=== PATIENT | female | born 1955 | race Caucasian/White ===

== ENCOUNTER 2024-10-28 10:23 | Observation (INO) | payer MEDICARE, SELFPAY ==
--- OUTSIDE RECORDS SUMMARY | 2024-09-29 12:18 | XMS_ITS | Continuity of Care Document ---
Author Organization [facility] Phone Care Team Providers Care Favor Maker Name Role Phone TESSA PLASENCIA Primary Care BAYRON GIORDANO Admitting BAYRON GIORDANO Primary Attending BAYRON GIORDANO Unavailable ALLERGIES AND ADVERSE REACTIONS ALLERGIES AND ADVERSE REACTIONS Code System Allergy Substance Adverse Reaction Date Reaction (Severity) Comment Status Reported By Updated By [id number] RXNorm MORPHINE Not available active [id number] on September 11, 2024 3:43:58 PM [place] 2670 RXNorm Codeine itching active [id number] on September 11, 2024 3:43:58 PM [place] FAMILY HISTORY RELATION: Father Status: Cause of : Unknown Age at : Unknown SNOMED-CT Diagnosis Age At Onset [id number] Cerebrovascular accident RELATION: Mother Status: Cause of : Unknown Age at : Unknown SNOMED-CT Diagnosis Age At Onset Information not available MEDICATIONS HOME MEDICATIONS Status RXNORM NDC Medication Dose Route Frequency Dates Comments Reported By Updated By Active 5186464 63442 10874 8 Albuterol Sulfate HFA Inhalation Aerosol Solution 108 (90 Base) MCG/ACT 2.0 PUF INHALE D Q4HPRN Last Dose: [id number] on September 11, 2024 3:44:24 PM [place] Active 086540 36774 51501 1 atorvastatin calcium (LIPITOR) 20.0 MG ORAL DAILY Last Dose: [id number] on September 11, 2024 3:44:28 PM [place] Active 980370 26736 77267 0 pantoprazole (PROTONIX) 40.0 MG ORAL DAILY Last Dose: [id number] on September 11, 2024 3:44:38 PM [place] Active 6704362 44605 02826 0 Trelegy Ellipta Inhalation Aerosol Powder Breath Activated 200-62.5-25 MCG/ACT 1.0 PUF INHALE D DAILY Last Dose: PATIENT lakisha on September 11, 2024 3:50:47 PM [facility] Active 6935031 07030 07933 1 DUONEB 0.5-2.5 MG/3 ML 1.0 NEB INHALE D [id number] Last Dose: PATIENT lakisha on September 11, 2024 3:51:27 PM [facility] Active 255847 81662 46410 1 METOPROLOL SUCCINATE ER 25.0 MG ORAL DAILY Last Dose: PATIENT lakisha on September 11, 2024 3:51:56 PM [facility] Active 09609 21478 1 Multivitamin Adult (Minerals) Oral Tablet 1.0 TAB ORAL DAILY Last Dose: PATIENT lakisha on September 11, 2024 3:52:56 PM [facility] Active 7729753 53238 95386 1 Naproxen Sodium Oral Capsule 220 MG 1.0 TAB ORAL BIDPRN Last Dose: PATIENT lakisha on September 11, 2024 3:54:19 PM [facility] Active 72565 27179 1 Vitamin D3 Oral Capsule 1.25 MG (08567 UT) 1.0 TAB ORAL DAILY Last Dose: PATIENT lakisha on September 11, 2024 3:55:27 PM [facility] DISCHARGE MEDICATIONS Status [place] [facility] [place] Medication Dose Route Frequency Dates Comments Physician Updated By No Discharge Medication Info rmation Available INPATIENT MEDICATIONS Status RXNORM [facility] [place] Medication Dose Route Frequency Rat e Quantity Dates Comments Physician Updated By No Inpatient Medication Info rmation Available SOCIAL HISTORY SOCIAL HISTORY SNOMED-CT Social History Element Description Effective Dates Offered Cessation Comment UpdatedBy [id number] Historical Tobacco smoking status Current Every Day Smoker [id number] on June 21, 2024 10:26:14 PM [facility] SOCIAL HISTORY - Gender Sex: Female SOCIAL HISTORY - Status : status i nformation is not available Intention in Next Year: intention information is not available SOCIAL HISTORY - Sexual Behavior Sexual Orientation Gender Identity SNOMED-CT Description SNO MED -CT Description Activity Level No of Partners Partner Type UpdatedBy Information is not available HEALTH CONCERNS Problems Concern Status Health Concern problem infor mation not available. Smoking Status Status Years Used Consumed packs p er day Health Concern smoking histo ry information not available. Family History Concern Status Health Concern family histor y information not available. ENCOUNTERS ENCOUNTER INFORMATION Reason for Visit J41.0 Admission September 10, 2024 11:01:00 AM [place] [address] [address] Discharge September 27, 2024 3:59:00 AM [place] DISCH ARGED TO HOME OR SELF CARE ENCOUNTER DIAGNOSES Notes information is not mil ilable. Code System Diagnosis Onset Date Diagnosis information is not available. ABSTRACT DIAGNOSES Code System Diagnosis Updated By J41.0 ICD10 SIMPLE CHRONIC BRONCHITIS PQ E7261 on September 29, 2024 4:17:42 PM [place] J41.0 ICD10 SIMPLE CHRONIC BRONCHITIS PQ E7261 on September 29, 2024 4:17:42 PM [facility] CARE TEAM Care Favor Maker Role TESSA PLASENCIA Primary Care BAYRON GIORDANO Admitting BAYRON GIORDANO Primary Attending BAYRON GIORDANO Referring CARE TEAM CARE casting technician Role on Team Status Start Date End Date Update d By LUIS ANGEL ZARATE MYSQL DEVELOPER PCP normal September 11, 2024 11:01:55 AM [facility] September 10, 2024 4:00:00 AM [facility] [id number] on September 11, 2024 11:01:55 AM [facility] PASQUALE BENNETT Referring normal September 11, 2024 11:01:55 AM [facility] September 10, 2024 4:00:00 AM [facility] [id number] on September 11, 2024 11:01:55 AM [facility] PASQUALE BENNETT Attending normal September 11, 2024 11:01:55 AM [facility] September 10, 2024 4:00:00 AM [facility] [id number] on September 11, 2024 11:01:55 AM [facility] PASQUALE BENNETT Admitting normal September 11, 2024 11:01:55 AM [facility] September 10, 2024 4:00:00 AM [facility] [id number] on September 11, 2024 11:01:55 AM [facility]
--- OUTSIDE RECORDS SUMMARY | 2024-10-24 12:52 | XMS_ITS | Continuity of Care Document ---
Author Organization [facility] Phone Care Team Providers Care Corporate Strategist Name Role Phone BAYRON GIORDANO Primary Attending BAYRON GIORDANO Admitting BAYRON GIORDANO Unavailable TESSA PLASENCIA Primary Care ALLERGIES AND ADVERSE REACTIONS ALLERGIES AND ADVERSE REACTIONS Code System Allergy Substance Adverse Reaction Date Reaction (Severity) Comment Status Reported By Updated By [id number] RXNorm MORPHINE Not available active [id number] on September 11, 2024 3:43:58 PM [facility] 2670 RXNorm Codeine itching active [id number] on September 11, 2024 3:43:58 PM [facility] FAMILY HISTORY RELATION: Father Status: Cause of : Unknown Age at : Unknown SNOMED-CT Diagnosis Age At Onset [id number] Cerebrovascular accident RELATION: Mother Status: Cause of : Unknown Age at : Unknown SNOMED-CT Diagnosis Age At Onset Information not available MEDICATIONS HOME MEDICATIONS Status RXNORM NDC Medication Dose Route Frequency Dates Comments Reported By Updated By Drug Treatment Unknown DISCHARGE MEDICATIONS Status RXNORM NDC Medication Dose Route Frequency Dates Comments Physician Updated By No Discharge Medication Info rmation Available INPATIENT MEDICATIONS Status RXNORM NDC Medication Dose Route Frequency Rat e Quantity Dates Comments Physician Updated By No Inpatient Medication Info rmation Available SOCIAL HISTORY SOCIAL HISTORY SNOMED-CT Social History Element Description Effective Dates Offered Cessation Comment UpdatedBy [id number] Historical Tobacco smoking status Current Every Day Smoker [id number] on June 21, 2024 10:26:14 PM [facility] SOCIAL HISTORY - Gender Sex: Female [...] INFORMATION Reason for Visit J41.0 Admission September 27, 2024 7:32:[address] [address] Discharge October 24, 2024 3:52:00 PM [facility] DISC HARGED TO HOME OR SELF CARE ENCOUNTER DIAGNOSES Notes information is not mil ilable. Code System Diagnosis Onset Date Diagnosis information is not available. ABSTRACT DIAGNOSES Code System Diagnosis Updated By J41.0 ICD10 SIMPLE CHRONIC BRONCHITIS HI E5319 on September 27, 2024 2:11:16 PM [facility] CARE TEAM Care Corporate Strategist Role BAYRON GIORDANO Primary Attending BAYRON GIORDANO Admitting BAYRON GIORDANO Referring TESSA PLASENCIA Primary Care CARE TEAM CARE legal clerk Role on Team Status Start Date End Date Update d By PASQUALE BENNETT Referring normal September 27, 2024 2:11:16 PM [facility] October 24, 2024 3:52:00 PM [facility] [id number] on September 27, 2024 2:11:16 PM [facility] PASQUALE BENNETT Attending normal September 27, 2024 2:11:16 PM [facility] October 24, 2024 3:52:00 PM [facility] [id number] on September 27, 2024 2:11:16 PM [facility] PASQUALE BENNETT Admitting normal September 27, 2024 2:11:16 PM [facility] October 24, 2024 3:52:00 PM [facility] [id number] on September 27, 2024 2:11:16 PM [facility] LUIS ANGEL ZARATE APRN PCP normal September 27 7:32:40 AM [facility] October 24, 2024 3:52:00 PM [facility] [id number] on September 27, 2024 2:11:16 PM [facility]
[2024-10-28] VITALS (14 sets, daily range): BP systolic 124–150; BP diastolic 44–85; PULSE 87–119; RESP 16–24; TEMP 36.5–36.8; O2SAT 85–98; BMI 31.2; BMI 31.6
--- NOTE | 2024-10-28 10:32 | ECG_ITS ---
APPROVED REPORT Exam: Resting ECG HR:93 bpm ECG Measurements Heart Rate 93 AXES NH 149 P -16 QRSd 85 QRS -28 QT 342 T -13 QTc 393 Conclusion SINUS RHYTHM BORDERLINE LEFT AXIS DEVIATION [QRS AXIS < -20] VOLTAGE CRITERIA FOR LVH [MEETS CRITERIA IN ONE OF: R(aVL), S(V1), R(V5), R(V5/V6)+S(V1)] No STEMI Electronically signed by : CELIA BATEMAN, 11/03/2024 03:57:41
--- NOTE | 2024-10-28 11:01 | ED_ITS ---
Discharge Plan Disposition Patient Disposition: Admitted Referrals Follow up/Referrals: Provider,Referral, [Primary Care Provider, Medical] - See instructions Clinical Impressions Clinical Impression: Acute exacerbation of chronic obstructive airways disease Print Language Print Language: Yoruba Discharge ED Provider: Leonarda Russell General Adult HPI General Chief complaint: Shortness of Breath/Dyspnea Stated complaint: COPD exaserbation SOA Time Seen by Provider: 10/28/24 11:00 Mode of Arrival: Ambulatory Source of Information: Patient Description of Symptoms (Recalled from ER Triage Doc. by RN): Pt states she is having SOA for 3-4 days with a cough. Pt has Hx of COPD and states she has had yellow thick sputumn. Pt states I have coughed so much it hurts to cough. Pt also reports not being able to hold her bladder which began this AM. Pt denies and pain or burning. History of Present Illness HPI narrative: Patient is a 69-year-old past medical history significant for COPD presents the emergency department with 3 days of cough congestion and shortness of breath. Denies chest pain. Cough is productive with yellow thick sputum. Is 1/2 pack/day smoker. Related Data Allergies Allergy/AdvReac Type Severity Reaction Status Date / Time No Known Allergies Allergy Verified 11/13/20 11:34 [facility] Disclaimer: The information contained in this section may have been updated after the patient was seen, as this information can be updated by other users. Social History Smoking Status: Current every day smoker alcohol intake: former current occupational status: unemployed Travel in the last 8 weeks?: Inside the [place] ROS Obtained: Yes All systems reviewed & no additional complaints except as documented Physical Exam General General appearance: alert ENT ENT exam: Present other (Nasal congestion) Respiratory Respiratory exam: Present wheezes and accessory muscle use Cardiovascular Cardiovascular exam: Present regular rate and normal rhythm Abdominal Exam Abdominal exam: Present soft; Absent tenderness Neurological Exam Neurological exam: Present alert and oriented X3 Medical Decision Making Medical Records Screening: Per USPSTF and CDC recommendations, given the prevalence of disease in our region, it is our hospital?s policy to screen for HIV and viral Hepatitis for all patients aged 18 and over and those with ongoing risk factors. Jayme Inquiry Pt receiving controlled substance: No Vital Signs: 10/28/24 10:30 10/28/24 10:33 10/28/24 10:38 Temperature 97.8 F Temperature Source Oral Pulse Rate 91 H Pulse Rate [Left] 91 H Respiratory Rate 16 Blood Pressure 150/85 H Blood Pressure [Right Arm] 150/85 H Blood Pressure Mean [Right Arm] 106 Blood Pressure Source [Right Arm] Automatic Cuff 02 Sat by Pulse Oximetry 85 L 90 L 97 Oxygen Delivery Method Room Air Nasal Cannula Oxygen Flow Rate (LPM) 2 10/28/24 11:00 10/28/24 11:30 10/28/24 12:00 Temperature Temperature Source Pulse Rate 88 87 102 H Pulse Rate [Left] Respiratory Rate 21 24 18 Blood Pressure 141/74 H 125/58 L 126/61 Blood Pressure [Right Arm] Blood Pressure Mean [Right Arm] Blood Pressure Source [Right Arm] 02 Sat by Pulse Oximetry 97 98 95 Oxygen Delivery Method Nasal Cannula Oxygen Flow Rate (LPM) 2 Lab Data Lab Results 10/28/24 10:45: WBC 7.3, RBC 4.23, Hgb 13.4, Hct 41.1, MCV 97.2, MCH 31.7 H, MCHC 32.6, RDW 11.9, Plt Count 207, MPV 9.5, Neut % (Auto) 62.1, Lymph % (Auto) 24.9, [place] % (Auto) 11.9 H, Eos % (Auto) 0.1, Baso % (Auto) 0.3, Neut # (Auto) 4.5, Lymph # (Auto) 1.8, [place] # (Auto) 0.9, Eos # (Auto) 0.0, Baso # (Auto) 0.0, Sodium 139, Potassium 3.9, Chloride 105, Carbon Dioxide 32 H, Anion Gap 5.9, BUN 18 H, Creatinine 0.90, Estimated Creat Clear 59, Estimated GFR 62, Est GFR ( Amer) 75, Glucose 92, Calcium 9.0, Magnesium 2.1, Total Bilirubin 0.6, AST 24, ALT 21, Alkaline Phosphatase 87, Troponin I < 0.01, Total Protein 6.8, Albumin 3.9, Globulin 2.9, Albumin/Globulin Ratio 1.3, Procalcitonin 0.064 10/28/24 11:15: SARS-CoV-2 (PCR) Not detected, Influenza A Untype (PCR) Not detected, Influenza Type B (PCR) Not detected 10/28/24 10:45 10/28/24 10:45 Orders (Tests/Meds): ED MEDICATIONS Generic Name Dose Route Start Last Admin Trade Name Freq PRN Reason Stop Dose Admin Ceftriaxone Sodium 1 gm/ 50 mls @ 100 mls/hr 10/28/24 12:00 Sodium Chloride IV 11/07/24 11:59 Q24H CARLOS Azithromycin 500 mg/ Sodium 250 mls @ 250 mls/hr 10/28/24 12:00 Chloride IV 11/07/24 11:59 Q24H CARLOS Discontinued Medications Generic Name Dose Route Start Last Admin Trade Name Freq PRN Reason Stop Dose Admin Albuterol/Ipratropium 9 ml 10/28/24 11:28 10/28/24 11:30 Ipratropium/Albuterol 3 Ml Neb IH 10/28/24 11:29 9 ml ONCE ONE Administration Methylprednisolone Sodium Succinate 125 mg 10/28/24 11:09 10/28/24 11:30 Methylprednisolone Sod Succ 125mg Vial IV 10/28/24 11:10 125 mg ONCE ONE Administration ORDERS Category Date Time Status XR chest 2V Stat Exams 10/28/24 11:07 Completed Complete Blood Count Auto Diff Stat Lab 10/28/24 10:45 Completed Comprehensive Metabolic Panel Stat Lab 10/28/24 10:45 Completed Full Resp Panel w/COVID ([facility]) Routine Lab 10/28/24 11:15 Received Magnesium Stat Lab 10/28/24 10:45 Completed Procalcitonin Stat Lab 10/28/24 10:45 Completed Rapid PCR Covid and Flu A/B Stat Lab 10/28/24 11:15 Completed Troponin I Q3H Lab 10/28/24 14:15 Ordered Troponin I Q3H Lab 10/28/24 17:15 Ordered Troponin I Stat Lab 10/28/24 10:45 Completed ECG Request Stat Y 10/28/24 11:10 Ordered Medical Decision Narrative: In summary, this 69-year-old female presents to the emergency department today with shortness of breath. On initial evaluation patient is hypertensive hypoxic requiring 2 L nasal cannula normal heart rate. Differential diagnosis includes but is not limited to COPD exacerbation pneumonia ACS viral syndrome. , Based on these concerns, I ordered CBC CMP procalcitonin nasopharyngeal respiratory swab chest x-ray, EKG troponins ECG personally interpreted demonstrates normal sinus rhythm left axis deviation no ST elevation ST depression or T wave inversions concerning for ischemia Patient received 3 DuoNebs and methylprednisolone for treatment. Labs personally reviewed demonstrate bicarb of 32 negative for COVID flu. XR personally interpreted demonstrates no focal consolidation I had an interactive discussion with hospitalist and with recommendations to admit for further evaluation of COPD exacerbation. On reassessment patient continues to require oxygen 2 L nasal cannula Critical Care Critical Care Time Critical Care Time: No
--- NOTE | 2024-10-28 11:07 | XR_ITS ---
PROCEDURE INFORMATION: Exam: XR Chest Exam date and time: 10/28/2024 11:08 AM Age: 69 years old Clinical indication: Shortness of breath; Additional info: SOA TECHNIQUE: Imaging protocol: Radiologic exam of the chest. Views: 2 views. COMPARISON: No relevant prior studies available. FINDINGS: Lungs: Unremarkable. No consolidation. Pleural spaces: Unremarkable. No pleural effusion. No pneumothorax. Heart/Mediastinum: Unremarkable. No cardiomegaly. Vasculature: Atheromatous calcifications affect the aorta. Bones/joints: Moderate kyphosis involving the thoracic spine. Moderate wedge compression deformities involving the midthoracic vertebrae are age indeterminate. IMPRESSION: No acute findings.
[2024-10-28 11:17] LABS: Basophils % 0.3 % (0.1-2.0); Eosinophils % 0.1 % (0.1-12.0); Hematocrit 41.1 % (37.0-47.0); Hemoglobin 13.4 g/dL (12.2-16.2); Immature Granulocytes # 0.05 10^3uL; Immature Granulocytes % 0.7 %; Lymphocytes # 1.8 K/mm3 (0.7-4.5); Lymphocytes % 24.9 % (10-50); Mean Corpuscular HGB Conc 32.6 g/dL (31.8-35.4); Mean Corpuscular Hemoglobin 31.7 pg (27.0-31.2); Mean Corpuscular Volume 97.2 fl (81-99); Mean Platelet Volume 9.5 fl (7.4-10.4); Monocytes # 0.9 K/mm3 (0.1-1.0); Monocytes % 11.9 % (1.7-9.3); Neutrophils # 4.5 K/mm3 (1.8-7.8); Neutrophils % 62.1 % (37.0-80.0); Nucleated Red Blood Cells # 0 10^3/uL; Nucleated Red Blood Cells % 0 %; Platelet Count 207 K/mm3 (142-424); Red Blood Count 4.23 M/mm3 (4.20-5.40); Red Cell Distribution Width 11.9 % (11.5-17.5); Red Cell Distribution Width-SD 42.3 fL; White Blood Count 7.3 K/mm3 (4.8-10.8)
[2024-10-28 11:18] LABS: Coronavirus 19, PCR Not Detected (NotDetected); Influenza A, PCR Not Detected (NotDetected); Influenza B, PCR Not Detected (NotDetected)
--- OUTSIDE RECORDS SUMMARY | 2024-10-28 11:18 | XMS_ITS | Data Portability ---
Author Organization [facility] Address [address] [place] [address] Care Team Providers Care [place] Manager Name Role Phone JULIANN MAHANAIDEN Primary Care Provider [phone] Assessment No assessment recorded. Plan of Treatment Reminders Order Date Submit Date Provider Last Modified By Organization Details Last Modified Time Details Appointments None recorded. Lab influenza virus A + B + SARS-CoV-2 (COVID19) Ag panel, rapid IA, upper respirator y specimen 2023 024 [facility], [address] , [place], [address], 4 11:53:55 urinalysis , dipstick 2022 023 [facility], [address] [place], [address], 3 16:25:06 culture, urine 2022 023 [facility] (Laboratory), [address] [place] [address] [place], [address], 3 06:31:40 Referral urogynecol ogist referral 2022 023 [email or web address] Myrtle Bain MD, [address], [address], [address], 3 13:59:27 Procedures None recorded. Surgeries None recorded. Imaging US, duplex, venous, lower extremity, unilateral 2023 024 [facility] (Scheduling), [address] [place], [address], 4 16:12:59 XR, foot, 3 or more view 2023 024 [facility] (Scheduling), [address] [place], [address], 4 16:17:25 Medication Orders Medrol (See) 4 mg tablets in a dose pack 2023 025 [facility], [address] [place] [address], [address], 5 07:29:11 azithromyc in 250 mg tablet 2023 025 [facility], [address] [place] [address], [address], 5 07:28:10 metoprolol succinate ER 25 mg tablet,ext ended release 24 hr 2023 024 [facility], [address] [place] [address], [address], 4 15:33:04 atorvastat in 20 mg tablet 2023 024 [facility], [address] [place] [address], [address], 4 15:33:06 Medrol (See) 4 mg tablets in a dose pack 2022 023 [email or web address] [facility], [address] [place] [address], [address], 5 07:29:04 doxycyclin e hyclate 100 mg capsule 2022 023 [email or web address] [facility], [address] [place] [address], [address], 14:14:23 Patient TargetsNo targets recorded. Patient InstructionsNo instructions recorded. Reason for Referral Urogynecologist Referral for Overactive urinary bladder due to prolapse of female genital organ Referring Physician: Sai Mahan, Family Medicine, Encounter Date: 01/21/2023 Results Created Date Observation Date Name Description Value Unit Range Abnormal Flag Note LastModifiedBy Organization Detail LastModifiedTime 01/22/2001/21/2023 CULTU RE URINE results [facility] 01-22 630 No Growt h at Day 1 [facility] 01-23 605 No Signi fican t Growt h at Day 2 Not Available [facility] (Lab Registration) [address] [place], [address], 01/23/2023 06:06:57 01/22/20 23 01/21/2023 CULTU RE URINE note Unles s other milian noted testi ng perfo rmed at: [facility] [employer] [place] [address] [phone] Dale keen MD CLIA: [id number] Not Available [facility] (Lab Registration) [address] [place], [address], 01/23/2023 06:06:57 01/22/20 23 01/21/2023 urina lysis , dipst ick Leukocytes (reference range) negati ve Not Available [address] [place], [address], 01/21/2023 16:11:34 01/22/20 23 01/21/2023 urina lysis , dipst ick Nitrite (reference range:) negati ve Not Available [address] [place], [address], 01/21/2023 16:11:34 01/22/20 23 01/21/2023 urina lysis , dipst ick Urobilinogen (reference range) 0.2 Not Available [address] [place], [address], 01/21/2023 16:11:34 01/22/20 23 01/21/2023 urina lysis , dipst ick Protein (reference range) negati ve Not Available [address] [place], [address], 01/21/2023 16:11:34 01/22/20 23 01/21/2023 urina lysis , dipst ick pH (reference range 5-8.5) 5.5 Not Available [address] [place], [address], 01/21/2023 16:11:34 01/22/20 23 01/21/2023 urina lysis , dipst ick Blood (reference range:) non-He molyze d: Trace Not Available [address] [place], [address], 01/21/2023 16:11:34 01/22/20 23 01/21/2023 urina lysis , dipst ick Specific [place] (reference range) 1.030 Not Available [address] [place], [address], 01/21/2023 16:11:34 01/22/20 23 01/21/2023 urina lysis , dipst ick Ketone (reference range) negati ve Not Available [address] [place], [address], 01/21/2023 16:11:34 01/22/20 23 01/21/2023 urina lysis , dipst ick Bilirubin (reference range) negati ve Not Available [address] [place], [address], 01/21/2023 16:11:34 01/22/20 23 01/21/2023 urina lysis , dipst ick Glucose (reference range) negati ve Not Available [address] [place], [address], 01/21/2023 16:11:34 01/22/20 23 01/21/2023 urina lysis , dipst ick Color (reference range: yellow-brown ) Yellow Not Available [address] [place], [address], 01/21/2023 16:11:34 02/07/20 24 02/07/2024 influ marco virus A + B + SARS- CoV-2 (COVI D19) Ag panel , rapid IA, upper respi rator y speci men FLU A negati ve Not Available [address] [place], [address], 02/07/2024 11:26:51 02/07/20 24 02/07/2024 influ marco virus A + B + SARS- CoV-2 (COVI D19) Ag panel , rapid IA, upper respi rator y speci men FLU B negati ve Not Available [address] [place], [address], 02/07/2024 11:26:51 02/07/20 24 02/07/2024 influ marco virus A + B + SARS- CoV-2 (COVI D19) Ag panel , rapid IA, upper respi rator y speci men SARS COV + SARS OV 2 negati ve Not Available [address] [place], [address], 02/07/2024 11:26:51 11/30/19 24 11/30/2023 US, yuusf x, mara s, jaylen sawyer, [facility] [address] [place] [place] [address] Phone: Fax: Name: ASAF BUSTOS Exam Date: 11/30/19 : 1954 Age 68 years Gender : F Access ion: [id number] Physic damion: LUCHO LUCIANO TAFNOEMÍ Y Facili ty: [facility] Facili ty HSV: Outpat ient Exam: VENOUS DUPLEX LOWER LEFT DUPLEX VENOUS SONOGR APHY OF THE LEFT LOWER EXTREM ITY HISTOR Y: Left leg pain and swelli ng FINDIN GS: Multip le transv erse and longit udinal scans were perfor med of the femoro poplit eal deep venous system , with augmen tation and compre ssion maneuv ers. Normal phasic flow was noted in the visual ized deep venous system . No intral uminal increa sed echoge nicity is noted to sugges t thromb us. There is normal compre ssion and augmen tation of the venous struct ures. No abnorm al venous collat erals are seen. IMPRES ANNIE: No eviden ce of deep venous thromb osis of the left lower extrem ity. Dictat ed By: ALMA ROSA MARTINES Transc ribed By: ALMA ROSA MARTINES Transc ribed On: 11/30/19 4:09 PM Electr onical ly signed by: ALMA ROSA MARTINES 11/30/19 [facility] Legall y authen ticate d by BOBBI MARROQUIN MD 11-29 16:09: 46 CC'ed Logic: Orderi ng Provid er: AMBURG EY TAFFAN Y CC Provid er: [facility] EY TAFFAN Y Attend ing Provid er: [facility] EY TAFFAN Y Referr ing Provid er: [facility] EY TAFFAN Y Admitt ing Provid er: AM[facility] EY TAFFAN Y [email or web address] [facility] (Radiology) [address] [place], [address], 11/30/2023 16:32:06 11/30/19 24 11/30/2023 XR, foot, 3 [facility] [address] [place] [address] Phone: Fax: Name: ASAF BUSTOS Brooks Exam Date: 11/30/19 : 1954 Age 68 years Gender : F Access ion: [id number] Physic damion: DUNIA KILPATRICK Y [facility]ili [facility] Facili ty HSV: Outpat ient Exam: FOOT LT 3V Left foot THREE VIEW HISTOR Y: Pain. FINDIN GS: Three views show no eviden ce of an acute, displa azeb fractu re or disloc ation of the visual ized bony mauricio ecture . The joint spaces appear normal . IMPRES ANNIE: Unrema rkable exam. Dictat ed By: ALMA ROSA MARTINES Transc ribed By: ALMA ROSA MARTINES Transc ribed On: 11/30/19 4:12 PM Electr onical ly signed by: ALMA ROSA MARTINES 11/30/19 Thank you for referr ing AKASH ASAF Noel to [facility]. Legall y authen ticate d by BOBBI MARROQUIN MD 11-29 16:12: 43 CC'ed Logic: Orderi ng Provid er: AMBURG EY TAFFAN Y CC Provid er: [facility] EY TAFFAN Y Attend ing Provid er: [facility] EY TAFFAN Y Referr ing Provid er: AM[facility] EY TAFFAN Y Admitt ing Provid er: AMBURG EY TAFNOEMÍ Y [id number] [facility] (Radiology) [address] [place] [address] , [place], [address], 11/30/2023 16:32:06 Result Notes None recorded. Problems Name Problem SNOMED Code Status Onset Date Resolution Date Notes Provider Name and Address Organization Details Recorded Time Acute exacerbation of chronic obstructive pulmonary disease 579240250 Active Hugo Hutchinso n null, [place] - [facility] - [place] [facility] [place] 5 07:26:16 Pneumonia 810636543 Active Hugo Hutchinso n null, [place] [facility] [place] 5 07:26:16 Osteoporosis 09199058 Active 2022 Harleen Dougherty null, [place] - [facility] [place] 3 09:48:20 Chronic obstructive pulmonary disease 20589692 Active 2022 Maya Serai null, [place] [facility] [place] 3 14:14:51 Gastroesophage al reflux disease 626454988 Active 2022 Maya Zamorai null, [place] [facility] [place] 3 14:14:55 Essential hypertension 45821088 Active 2022 Maya Oscardini null, [place] [facility] & [place] 3 14:15:07 Disorder of vitamin B12 765549875 Active 2022 Maya Oscardini null, [place] [facility] & [place] 3 14:15:24 Problem Notes None recorded. Procedures Surgical History Date Name Laterality Status Provider Name and Address Organization Details Recorded Time 07/25/19 25 Medicare Annual Wellness Visit Health Risk Assessment cancelled Radha Soriano [place] [facility] [place] 07/25/2024 07:42:43 08/17/19 23 Nebulizer tx completed SAI MAHAN NP [address] [place] [address], [address] [place] - [facility] - [place] & [place] 08/18/2022 09:59:09 07/21/19 23 Medicare Annual Wellness Visit Health Risk Assessment completed Harleen Dougherty [place] [facility] [place] & [place] 07/21/2022 09:57:58 05/30/19 15 cardiac catheterization completed Harleen CURRY - [facility] & [place] 07/21/2022 09:52:01 Cholecystectomy completed Harleen CURRY - [facility] - [facility] & [place] 07/21/2022 09:52:13 hysterectomy completed Harleen Dougherty [place] [facility] & [place] 07/21/2022 09:52:20 Imaging Results None recorded. Procedure Notes None recorded. Medical Equipment None Reported. Allergies Allergen ID Allergen Name Allergen Category Reaction Reaction Severity Criticality Documentation Date Start Date Code Code System Note Provider Name and Address Organization Details Recorded Time [id number] codeine medicatio n itching Not available Not available 06/21/2024 2670 RxNorm Michelle Bubba null, [place] - [facility] [place] & [place] 5 13:44:58 23769 morphine medicatio n Not available Not available Not available 07/21/2022 7052 RxNorm Other react ions and sever ities : 'Adve rse react ion to subst ance' . Hugo noel null, [place] - [facility] - [place] & [place] 5 07:26:05 Medications Name Sig Start Date Stop Date Status Note LastModified by Organization Details LastModified Time cyclobenzap rine 10 mg tablet TAKE 1 TABLET BY MOUTH THREE TIMES DAILY 07/21 completed Not Available Not Available Not Available atorvastati n 40 mg tablet 20 mg by oral route. active Not Available Not Available No t Available acetaminoph en 325 mg tablet 650 mg by oral route. 06/23 completed Not Available Not Available Not Available doxycycline hyclate 100 mg capsule TAKE 1 CAPSULE BY MOUTH TWICE DAILY FOR 7 DAYS 05/10 completed Not Available Not Available Not Available atorvastati n 20 mg tablet Take 1 tablet by mouth once daily 2024 active Not Available Not Available Not Avai lable nicotine 14 mg/24 hr daily transdermal patch 14 mg by transderm . route. 06/23 completed Not Available Not Available Not Available ipratropium 0.5 mg-albutero l 3 mg (2.5 mg base)/3 mL nebulizatio n soln 1 neb by inhalatio n route. 06/21 completed Not Available Not Available Not Available atorvastati n 10 mg tablet TAKE 1 TABLET BY MOUTH ONCE DAILY 07/21 completed Not Available Not Available Not Available azithromyci n 250 mg tablet TAKE 2 TABLETS BY MOUTH ON DAY 1, AND THEN TAKE 1 TABLET BY MOUTH ONCE A DAY ON DAY 2 THROUGH DAY 5 07/25 completed Not Available Not Available Not Available benzonatate 200 mg capsule Take 1 capsule by oral route. 07/25 completed Not Available Not Available Not Available metoprolol succinate ER 50 mg tablet,exte nded release 24 hr 1 tablet by oral route. 2024 active Not Available Not Available Not Avai lable lorazepam 2 mg/mL injection solution 2 mg by injection route. 06/22 completed Not Available Not Available Not Available prednisone 20 mg tablet TAKE 3 TABLETS BY MOUTH ONCE DAILY FOR 5 DAYS 05/10 completed Not Available Not Available Not Available alendronate 70 mg tablet TAKE 1 TABLET BY MOUTH ONCE A WEEK 30 MINUTES BEFORE THE FIRST FOOD BEVERAGE OR MEDICINE OF THE DAY. TAKE WITH PLAIN WATER 07/21 completed Not Available Not Available Not Available clonazepam 0.5 mg tablet TAKE ONE TABLET BY MOUTH 30 MINUTES BEFORE MRI 07/21 completed Not Available Not Available Not Available melatonin 3 mg tablet 3 mg by oral route. 06/23 completed Not Available Not Available Not Available levofloxaci n 250 mg tablet Take 1 tablet by oral route. 07/25 completed Not Available Not Available Not Available aspirin 81 mg tablet,theo yed release 81 mg by oral route. active Not Available Not Available No t Available hydralazine 20 mg/mL injection solution 20 mg by injection route. 06/23 completed Not Available Not Available Not Available ketorolac 10 mg tablet TAKE 1 TABLET BY MOUTH EVERY 4 TO 6 HOURS NEEDED FOR PAIN. DO NOT EXCEED 4 TABLETS PER 24 HOURS 07/21 completed Not Available Not Available Not Available Aleve 220 mg tablet Take 1 tablet every day by oral route as needed. active Not Available Not Available No t Available Nitro-Bid 2 % transdermal ointment 1 in by transderm . route. 06/21 completed Not Available Not Available Not Available ceftriaxone 1 gram solution for injection 1 g by injection route. 06/22 completed Not Available Not Available Not Available famotidine 20 mg tablet 20 mg by oral route. 06/23 completed Not Available Not Available Not Available Pulmicort 0.5 mg/2 mL suspension for nebulizatio n 0.5 mg by inhalatio n route. 06/23 completed Not Available Not Available Not Available benzonatate 100 mg capsule 100 mg by oral route. 06/21 completed Not Available Not Available Not Available pantoprazol e 40 mg tablet,theo yed release Take 1 tablet by mouth once daily active Not Available Not Available No t Available prednisone 50 mg tablet 1 tablet by oral route. 2024 active Not Available Not Available Not Avai lable nicotine 21 mg/24 hr daily transdermal patch 1 pat by transderm . route. 2024 active Not Available Not Available Not Avai lable methylpredn isolone sodium succinate 40 mg solution for injection 80 mg by injection route. 06/23 completed Not Available Not Available Not Available codeine 10 mg-guaifene sin 100 mg/5 mL oral liquid 5 mL by oral route. 06/22 completed Not Available Not Available Not Available metoprolol succinate ER 25 mg tablet,exte nded release 24 hr 25 mg by oral route. active Not Available Not Available No t Available methylpredn isolone sodium succinate 125 mg solution for injection 125 mg by injection route. 06/21 completed Not Available Not Available Not Available levofloxaci n 750 mg tablet 750 mg by oral route. 06/23 completed Not Available Not Available Not Available methylpredn isolone 4 mg tablets in a dose pack TAKE DIRECTED 07/25 completed Not Available Not Available Not Available albuterol sulfate HFA 90 mcg/actuati on aerosol inhaler 2 pufs by inhalatio n route. 2024 active Not Available Not Available Not Avai lable propranolol 20 mg tablet TAKE 1 TABLET BY MOUTH ONCE DAILY AT BEDTIME 07/21 completed Not Available Not Available Not Available ondansetron 4 mg disintegrat ing tablet 4 mg by oral route. 06/23 completed Not Available Not Available Not Available Solu-Cortef 100 mg solution for injection 100 mg by injection route. 06/21 completed Not Available Not Available Not Available metoprolol tartrate 5 mg/5 mL intravenous solution 5 mg by intraven. route. 06/23 completed Not Available Not Available Not Available enoxaparin 80 mg/0.8 mL subcutaneou s syringe 80 mg by sub-q route. 06/23 completed Not Available Not Available Not Available Mucinex 600 mg tablet, extended release Take 1 tablet every 12 hours by oral route for 90 days. 11/26 completed Not Available Not Available Not Available metoprolol tartrate 25 mg tablet 25 mg by oral route. 06/22 completed Not Available Not Available Not Available nitrofurant oin monohydrate /macrocryst als 100 mg capsule TAKE 1 CAPSULE BY MOUTH TWICE DAILY FOR 10 DAYS 07/21 completed Not Available Not Available Not Available multivitami n one tablet everyday active Not Available Not Available No t Available Vitamin B12 one tabley everyday active Not Available Not Available No t Available ondansetron HCl (PF) 4 mg/2 mL injection solution 4 mg by injection route. 06/23 completed Not Available Not Available Not Available levocetiriz ine 5 mg tablet TAKE 1 TABLET BY MOUTH ONCE DAILY active Not Available Not Available No t Available famotidine (PF) 20 mg/2 mL intravenous solution 20 mg by intraven. route. 06/21 completed Not Available Not Available Not Available labetalol 20 mg/4 mL (5 mg/mL) intravenous syringe 10 mg by intraven. route. 06/22 completed Not Available Not Available Not Available Myrbetriq 25 mg tablet,exte nded release TAKE 1 TABLET BY MOUTH ONCE DAILY 07/21 completed Not Available Not Available Not Available Trelegy Ellipta 100 mcg-62.5 mcg-25 mcg powder for inhalation 1 puf by inhalatio n route. active Not Available Not Available No t Available Trelegy Ellipta 200 mcg-62.5 mcg-25 mcg powder for inhalation INHALE 1 PUFF BY MOUTH ONCE DAILY active Not Available Not Available No t Available Vitals Date Recorded Body height Body mass index (BMI) Body weight Body temperature Oxygen saturation Oxygen saturation in Arterial blood by Pulse oximetry Heart rate Systolic blood pressure Diastolic blood pressure Provider Name and Address Organization Details Last Updated DateTime 4 152.4 cm 30.5 kg/m2 77863.4 1 g 97.4 [degF] 94 % 94 % 106 /min 136 mm[Hg] 63 mm[Hg] Hugo Hutchinso n [place] - [facility] - [place] & [place] 4 15:16:09 Date Recorded Oxygen saturation Oxygen saturation in Arterial blood by Pulse oximetry Provider Name and Address Organization Details Last Updated DateTime 01/21/2023 98 % 98 % SAI MAHAN NP [address] [place], [address], [place] - [facility] & [place] 01/27/2023 11:05:59 Date Recorded Body height Body mass index (BMI) Body weight Body temperature Heart rate Respiratory rate Systolic blood pressure Diastolic blood pressure Provider Name and Address Organization Details Last Updated DateTime 3 152.4 cm 29.7 kg/m2 40008.0 4 g 98.1 [degF] 96 /min 18 /min 116 mm[Hg] 68 mm[Hg] Gomez Mg [place] - [facility] & [place] 3 15:46:37 Date Recorded Body height Body mass index (BMI) Body weight Body temperature Oxygen saturation Oxygen saturation in Arterial blood by Pulse oximetry Heart rate Respiratory rate Systolic blood pressure Diastolic blood pressure Provider Name and Address Organization Details Last Updated DateTime 4 152.4 cm 30.5 kg/m2 61107.4 1 g 98.1 [degF] 95 % 95 % 102 /min 18 /min 147 mm[Hg] 70 mm[Hg] Gomez CURRY - [facility] & [place] 4 11:27:02 Date Recorded Body height Body mass index (BMI) Body weight Body temperature Oxygen saturation Oxygen saturation in Arterial blood by Pulse oximetry Heart rate Respiratory rate Systolic blood pressure Diastolic blood pressure Provider Name and Address Organization Details Last Updated DateTime 3 152.4 cm 29.7 kg/m2 69928.0 4 g 98 [degF] 92 % 92 % 109 /min 16 /min 136 mm[Hg] 75 mm[Hg] Veronica Gordillo [place] - [facility] & [place] 3 15:54:52 Date Recorded Body height Body mass index (BMI) Body weight Body temperature Oxygen saturation Oxygen saturation in Arterial blood by Pulse oximetry Heart rate Respiratory rate Systolic blood pressure Diastolic blood pressure Provider Name and Address Organization Details Last Updated DateTime 3 152.4 cm 30.2 kg/m2 40210.1 g 97.4 [degF] 97 % 97 % 117 /min 22 /min 141 mm[Hg] 85 mm[Hg] Maya Singer [facility] & [place] 14:13:58 Social History Question Answer Notes LastModified by Organizat ion Details LastModified Time Tobacco Smoking Status Current Every Day Smoker Harleen Dougherty kisha, [facility] & [place] 07/21/2022 09:51:38 What Is Your Level Of Caffeine Consumption? Heavy Information not available 07/21/2022 What Was The Date Of Your Most Recent Tobacco Screening? 11/30/2023 [email or web address] Information not available 11/30/2023 At What Age Did You Start Smoking Tobacco? 11 Information not available 07/21/2022 How Much Tobacco Do You Smoke? 1 PPD Information not available 07/21/2022 Has Tobacco Cessation Counseling Been Provided? Yes [email or web address] Information not available 11/30/2023 On What Date Was Tobacco Cessation Counseling Provided? 11/30/2023 [email or web address] Information not available 11/30/2023 How Many Years Have You Smoked Tobacco? 56 Information not available 07/21/2022 Sex: Unknown Functional Status Question Answer Note LastModified by Organizat ion Details LastModified Time Do you use any illicit or recreational drugs? No Information not available 07/21/2022 Do you or have you ever used any other forms of tobacco or nicotine? No Information not available 07/21/2022 What is your level of alcohol consumption? None Information not available 07/21/2022 Mental Status None recorded. Family History Relationship Description Onset Age of this Age Resolved Age Notes LastModified by Organization Details LastModified Time Mother Pulmonary embolism Deceas ed [email or web address] Not available 07/21/2022 09:50:23 Father Cerebrovascu lar accident Deceas ed [email or web address] Not available 07/21/2022 09:50:45 Brother Malignant neoplasm of lung Deceas ed [email or web address] Not available 07/21/2022 09:51:02 Medical History Condition Response COPD Y Reflux/GERD Y Osteoporosis Y Gynecological HistoryNo gynecological history recorded. Obstetrics History GPAL:G 0 P 0 0 0 0 Immunizations Vaccine Type Date Status Note Provider Nam e and Address Organization Details Recorded Time Pneumococcal conjugate PCV 13 3 completed SAI MAHAN NP [address] [place], [address], [place] [facility] [place] 07/30/2022 16:39:21 COVID-19, mRNA, LNP-S, PF, 100 mcg/0.5mL dose or 50 mcg/0.25mL dose 1 completed Harleen beard, [place] - [facility] [place] 07/21/2022 09:46:36 COVID-19, mRNA, LNP-S, PF, 100 mcg/0.5mL dose or 50 mcg/0.25mL dose 1 completed Harleen beard, [place] [facility] [place] 07/21/2022 09:46:36 pneumococcal polysaccharide PPV23 1 completed Harleen beard, [place] [facility] 07/21/2022 09:46:36 Influenza, high-dose, quadrivalent, PF 2 completed SAI MAHAN NP [address] [place] [address], [address], [place] - [facility] [place] 04/05/2022 17:39:03 Past Encounters Encounter ID Performer Location Encounter Start Date Encounter Closed Date Diagnosis/Indication Diagnosis SNOMED-CT Code Diagnosis ICD10 Code Diagnosis Note [id number] JOHN [address] [address] 04/02/2022 11:34:25 04/02/2022 12:00:04 Administration of influenza vaccine [id number] Z23 [id number] JOHN [address] [address] 07/21/2022 09:28:38 08/02/2022 08:44:05 Adult health examination 811693150 Z00.00 Patient presented to office today for their Medicare Annual Wellness Visit. Education was provided on healthy nutrition, including a diet rich in fruits and vegetables , minimizing simple carbohydra deysi, salt, and saturated fats. Encouraged regular cardiovasc ular exercise such as walking at least 30 minutes daily, 5 times per week. Emphasized preventive health measures and educated pt on fall prevention and community- based lifestyle interventi ons to help reduce health risks and promote healthy living. Screening for malignant neoplasm of respiratory tract 300009082 Z12.2 Screening mammography of bilateral breasts [id number] 41034 Z12.31 Screening for osteoporosis 501366412 Z13.820 previously on alendronat e Screening for malignant neoplasm of colon 870311979 Z12.11 Chronic ob structive pulmonary disease 07816395 J44.9 smoking cessationr escue vs maintenanc e inhaler educationu se of inhalersne eds LDCT Tachycardia 6098104 R00. 0 awaiting lab workused to take beta tuyet; will restart low dose but need to see back in 4 weeks due to COPD Hyperlipidemia 07476636 E78.5 Patient advised to exercise, eat a prudent diet and lose weight as appropriat e. Excessive thirst 8783511 7 R63.1 awaiting lab work Administra tion of pneumococcal vaccine 07265568 Z23 Tobacco user 516302411 Z 72.0 smoking cessation education [id number] JOHN LOREN[address] [address] 08/16/2022 14:10:54 08/16/2022 15:23:40 Acute exacerbation of chronic obstructive pulmonary disease 751784594 J44.1 smoking cessationr escue vs maintenanc e inhaler educationu se of inhalersta ke medication s as prescribed ER if any worsening improved with neb treatment; gave home nebulizer, educated on use and medication sent to pharmacy Tobacco user 089529397 Z 72.0 smoking cessation education Tachycardia 2296545 R00. 0 push fluidstake metoprolol as prescribed [id number] SAI MAHAN NP [address] [address] 08/20/2022 08:12:15 08/20/2022 08:56:12 Chronic obstructive pulmonary disease 40314429 J44.9 smoking cessationr escue vs maintenanc e inhaler educationu se of inhalersim proved from previous exam Tobacco user 350522799 Z 72.0 smoking cessation education [id number] SAI MAHAN NP [address] [place] [address] 11/26/2022 08:52:35 11/26/2022 09:39:52 Chronic obstructive pulmonary disease 59649056 J44.9 smoking cessation, discussed for 3 minutes of decreasing one cigarette by weekrescue vs maintenanc e inhaler educationu se of inhalersUT D of LDCT screen Gastroesop hageal reflux disease 591019515 K21.9 Avoid spicy foods, carbonated beverages, lying down 30 minutes to 1 hour after eatingEat smaller portion sizesTake medication s as prescribed Weight management controlled Tachycardia 4278612 R00. 0 controlled cleared by cardiology without concerns; will review cardiology notesconti nue metoprolol [id number] SAI MAHAN NP [address] [place] [address] 01/21/2023 15:35:38 01/21/2023 16:53:49 Vaginitis 69592326 N76.0 discussed atrophy as a potential cause Dysuria 45206391 R30.0 UA reviewed with ptawaiting culturesta y well hydrated Overactive urinary bladder due to prolapse of female genital organ 377172761 N32.81 hysterecto my in past, told bladder prolapse in past; denies any signs of prolapse currently [id number] SAI MAHAN NP [address] [place] [address] 03/22/2023 15:53:47 03/22/2023 16:20:15 Acute exacerbation of chronic obstructive pulmonary disease 859398924 J44.1 smoking cessationr escue vs maintenanc e inhaler educationu se of inhalersta ke medication s as prescribed ER if any worsening [id number] Toney Rivera MD [address] [place] [address] 05/10/2023 13:53:31 05/10/2023 14:29:54 Chronic obstructive pulmonary disease 91682956 J44.9 PATIENT WAS GIVEN 2 SAMPLE PACKS WELL A 30 DAY CO-PAY OF HER TRELEGY.SH E HAS BEEN INSTRUCTED TO CONTINUE TO USE THE MEDICATION PRESCRIBED . [id number] SAI MAHAN NP [facility] [address] [place] [address] 11/30/2023 15:08:11 12/02/2023 09:58:21 Pain in left foot 8499864103 66801 M79.672 awaiting xray and US Swelling of left foot 76 6578345 M79.89 Pain in le ft lower limb 245371880 M79.605 awaiting US but recommend vascular referral due to severe varicositi es present Coronary arteriosclerosis 40818753 I25.10 refill provided Tachycardia 8438290 R00. 0 controlled cleared by cardiology without concernsco ntinue metoprolol [id number] SAI MAHAN NP [facility] [address] [facility] [place] [address] 02/07/2024 11:10:15 02/08/2024 08:46:52 Cough 87147179 R05.1 stay well hydratedre stmedicati ons as prescribed symptomati c management smoking cessationE R if any urgent signs or symptoms arise Acute exac erbation of chronic obstructive pulmonary disease 535396236 J44.1 smoking cessationr escue vs maintenanc e inhaler educationu se of inhalersta ke medication s as prescribed ER if any worseninga irsupra sample given in clinic and education provided Health Concerns Section Related Observation LastModified by Organization Detai ls LastModified Time None Recorded Concern Status LastModified by Organization Details LastModified Time None Recorded Advance Directives Directive None Recorded Payers Insurance Date Sequence Insurance Name Policy Number Policy Albarado Covered Member ID Albarado Member ID Guarantor Name 07/22/2024 1 [place]MED[place]AC[place] HMO) [id number] Roxana Bustos [id number] Roxana Bustos 03/21/2019 1 [employer] (MEDICARE REPLACEMENT/AD VANTAGE - PPO) Roxana Bustos [id number] Roxana Bustos 03/21/2019 1 [place] Roxana Bustos [id number] Roxana Bustos 04/06/2022 HU[employer]NA - GOLD PLUS (MEDICARE REPLACEMENT/AD VANTAGE - HMO) Roxana Garcia Akash [id number] Roxana Garcia Akash 11/14/2019 1 [employer] (MEDICARE REPLACEMENT/AD VANTAGE - PPO) Roxana Garcia Akash [id number] Roxana Garcia Akash 11/26/2019 1 [place] Roxana Bustos [id number] Roxana Garcia Akash 07/21/2022 1 [employer]MA[employer] - GOLD PLUS (MEDICARE REPLACEMENT/AD VANTAGE - HMO) Roxana Garcia Akash [id number] Roxana Garcia Akash Notes Date Note Type Note Provider Name and Address Organization Details Recorded Time 01/21/2023 text/html 67 yr old female who presents for possible UTI. Has frequency. Reports hysterectomy in the past. Denies any bowel changes. Denies fever, chills, nausea, vomiting. SAI MAHAN NP [address] [place] [address], [address], [facility] [place] 01/27/2023 11:08:42 03/22/2023 text/html 1 week coughing, wheezing. Denies any known sick contacts. Using her inhalers for COPD as prescribed. Denies chest pain, shortness of breath, fever, chills, nausea, vomiting. No other medications tried SAI MAHAN NP [address] [place] [address], [address], [facility] [place] 03/22/2023 16:54:46 05/10/2023 text/html SDS PATIENT PRESENTS TODAY COMPLAINING OF SHORTNESS OF BREATH. IT APPEARS THAT SHE HAS RUN OUT OF HER TRELEGY. Toney Rivera MD [address] [place] [address], [address], [facility] [place] 05/10/2023 14:30:10 11/30/2023 text/html 68-year-old fema kinza who presents with left foot pain, pain radiates to her leg. Denies any injury or trauma. Has been worsening over the past 2 weeks. Denies any treatment tried. Difficulty walking and wearing her shoes SAI MAHAN NP [address] [place], [address], [facility] [place] 11/30/2023 15:34:24 02/07/2024 text/html 68-year-old femgenny echols who presents with sore throat, earache mainly on the left side, runny nose and congestion and wheezing that started on Tuesday. She has been taking Mucinex Tylenol and Claritin without improvement. She has been using her inhalers as prescribed. Sometimes she has a productive cough other times it is dry. SAI MAHAN NP [address] [place] [address], [phone], [place] [facility] 02/07/2024 12:45:32 OBGyn Episode No OBEpisode recorded.
--- OUTSIDE RECORDS SUMMARY | 2024-10-28 11:18 | XMS_ITS | Data Portability ---
Author Organization [facility] Address [address] [place] [address] Assessment Encounter Date Assessment Date Assessment LastModified by Organization Details LastModified Time 12/25/2020 12/25/2020 We reviewed the potential causes of hematuria and recommendation for upper urinary tract imaging and lower urinary tract evaluation by cystoscopy. She voices understanding. [email or web address] Not available 01/04/2021 16:31:58 01/27/2021 01/27/2021 DATE OF PROCEDUR E: January 27, 2021 PROCEDURE PERFORMED: Cystourethroscopy SURGEON: Olga Mondragon M.D. ANESTHESIA: Local BLOOD LOSS: None PREOPERATIVE INDICATIONS: Microscopic Hematuria POSTOPERATIVE INDICATIONS: Microscopic Hematuria DESCRIPTION OF PROCEDURE: Patient was correctly identified in preoperative holding area. Informed consent was obtained. Risks and benefits were reviewed with patient. Patient was taken to procedure room and positioned supine frog-leg position. All pressure points padded. Proper timeout procedure completed. Genitourinary area prepped and draped in the normal sterile fashion. Lidocaine jelly instilled for local analgesia. Flexible cystoscope advanced through the urethra. Bladder mucosa without evidence of erythema, papillary bladder mass, foreign body. Ureteral orifices in normal anatomic position. The urethra was without evidence of stricture or stenosis. The cystoscope was withdrawn atraumatically. Patient tolerated procedure well. DISPOSITION: Patient was taken to the recovery in stable condition. Discharged home with instructions for outpatient follow-up. [email or web address] Not available 02/09/2021 08:14:05 Plan of Treatment Reminders Order Date Submit Date Provider Last Modified By Organization Details Last Modified Time Details Appointments None recorded. Lab creatinine, serum or plasma - 01-13-212020 021 [email or web address] [facility], [address] [place], [address], 09:41:58 bun (blood urea nitrogen), serum or plasma - 01-13-20212020 021 [email or web address] [facility], [address] [place] [address], [address], 09:41:58 urinalysis panel, auto 2020 021 [email or web address] 14 [facility] Extended Services With [facility], [address] [place] [address] [address], [place], [address], 16:31:59 Referral None recorded. Procedures None recorded. Surgeries cystoscopy (SURG) 2020 021 [email or web address] [facility], [address] [address], [place], [address], 11:04:[address], abdomen + pelvis, w/wo contrast 2020 [facility], [address] [place] [address], [address], 14:04:42 Medication Orders None recorded. Patient TargetsNo targets recorded. Patient InstructionsNo instructions recorded. Reason for Referral None Reported. Results Created Date Observation Date Name Description Value Unit Range Abnormal Flag Note LastModifiedBy Organization Detail LastModifiedTime 12/26/1912/25/2020 urina lysis panel , auto Unknown Analyte Clean Catch Not Available [facility] Extended Services With [address], [place], [address], 12/25/2020 15:12:31 12/26/19 21 12/25/2020 urina lysis panel , auto Unknown Analyte Yellow Not Available [facility] Extended Services With [address], [place], [address], 12/25/2020 15:12:31 12/26/19 21 12/25/2020 urina lysis panel , auto Unknown Analyte Clear Not Available [facility] Extended Services With [address], [place], [address], 12/25/2020 15:12:31 12/26/19 21 12/25/2020 urina lysis panel , auto Unknown Analyte 1.020 Not Available [facility] Extended Services With [address], [place], [address], 12/25/2020 15:12:31 12/26/19 21 12/25/2020 urina lysis panel , auto Unknown Analyte 1.003- 1.035 Not Available [facility] Extended Services With [address], [place], [address], 12/25/2020 15:12:31 12/26/19 21 12/25/2020 urina lysis panel , auto Unknown Analyte 5.0 Not Available [facility] Extended Services With [address], [place], [address], 12/25/2020 15:12:31 12/26/19 21 12/25/2020 urina lysis panel , auto Unknown Analyte 5.0-8. 0 Not Available [facility] Extended Services With [address], [place], [address], 12/25/2020 15:12:31 12/26/19 21 12/25/2020 urina lysis panel , auto Unknown Analyte Negati ve Not Available [facility] Extended Services With [address], [place], [address], 12/25/2020 15:12:31 12/26/19 21 12/25/2020 urina lysis panel , auto Unknown Analyte Negati ve Not Available [facility] Extended Services With [address] [place], [address], 12/25/2020 15:12:31 12/26/19 21 12/25/2020 urina lysis panel , auto Unknown Analyte Negati ve Not Available [facility] Extended Services With [address] [place], [address], 12/25/2020 15:12:31 12/26/19 21 12/25/2020 urina lysis panel , auto Unknown Analyte Negati ve Not Available [facility] Extended Services With [address] [place], [address], 12/25/2020 15:12:31 12/26/19 21 12/25/2020 urina lysis panel , auto Unknown Analyte Negati ve Not Available [facility] Extended Services With [address] [place], [address], 12/25/2020 15:12:31 12/26/19 21 12/25/2020 urina lysis panel , auto Unknown Analyte Negati ve Not Available [facility] Extended Services With [address] [place], [address], 12/25/2020 15:12:31 12/26/19 21 12/25/2020 urina lysis panel , auto Unknown Analyte Normal Not Available [facility] Extended Services With [address] [place], [address], 12/25/2020 15:12:31 12/26/19 21 12/25/2020 urina lysis panel , auto Unknown Analyte Normal Not Available [facility] Extended Services With [address] [place], [address], 12/25/2020 15:12:31 12/26/19 21 12/25/2020 urina lysis panel , auto Unknown Analyte Negati ve Not Available [facility] Extended Services With [address], [place], [address], 12/25/2020 15:12:31 12/26/19 21 12/25/2020 urina lysis panel , auto Unknown Analyte Negati ve Not Available [facility] Extended Services With [address] [place], [address], 12/25/2020 15:12:31 12/26/19 21 12/25/2020 urina lysis panel , auto Unknown Analyte Normal Not Available [facility] Extended Services With [address] [place], [address], 12/25/2020 15:12:31 12/26/19 21 12/25/2020 urina lysis panel , auto Unknown Analyte Normal 1 mg/dl Not Available [facility] Extended Services With [address], [place], [address], 12/25/2020 15:12:31 12/26/19 21 12/25/2020 urina lysis panel , auto Unknown Analyte Negati ve Not Available [facility] Extended Services With [address] [place], [address], 12/25/2020 15:12:31 12/26/19 21 12/25/2020 urina lysis panel , auto Unknown Analyte Negati ve Not Available [facility] Extended Services With [address] [place], [address], 12/25/2020 15:12:31 12/26/19 21 12/25/2020 urina lysis panel , auto Unknown Analyte Trace Not Available [facility] Extended Services With [address], [place], [address], 12/25/2020 15:12:31 12/26/19 21 12/25/2020 urina lysis panel , auto Unknown Analyte Negati ve Not Available [facility] Extended Services With [facility] [address], [place], [address], 12/25/2020 15:12:31 01/28/20 21 01/27/2021 CT, abdom en + pelvi s, w/wo contr ast [facility] [address] [facility] [place] [address] Patien t Name: ASAF robert : 1954 Patireggie robert Orderi ng Provid er: OLGA Guy EXAM DATE: 2020 EXAM: CT HEMATU ERNST PROTOC OL CLINIC AL INFORM ATION: Hematu ernst TECHNI QUE: No POC was perfor med. Multip le axial CT images of the abdome n were obtain ed before and in the combin ed nephro graphi c and excret ory phases after a split inject ion of 100 mL Optira y 320 (1 [place] [address]-1 1). None was wasted and discar ded. Bowel was marked with water. CT IVP images were create d on a 3D workst ation. COMPAR GLORIA: None. FINDIN GS ON CT ABDOME N: LOWER THORAX : Lung bases are clear. No obviou s cardia c abnorm ality. URINAR Y TRACT: Both kidney s are normal in locati on, size, shape, outlin e and parenc hymal thickn ess. No stones or calcif icatio ns are seen within the kidney s ureter s or urinar y bladde r. Nephro graphi c phase shows normal parenc hymal enhanc ement bilate rally withou t delay. No focal abnorm ality. Excret ory phase shows adequa te opacif icatio n of collec ting system s and ureter s withou t dilata tion or fillin g defect . Urinar y bladde r is normal in outlin e and wall thickn ess withou t fillin g defect or mass. OTHER UPPER ABDOMI NAL ORGANS : Liver, spleen , pancre as, and adrena ls are normal . Gallbl adder surgic ally absent BOWEL AND MESENT SE: Stomac h, small bowel and colon are normal . No mesent [place] lympha denopa thy or perito jorge free fluid. RETROP ERITON EUM: Aorta, IVC and their branch es are patent and normal . No retrop eriton eal lympha denopa thy. ABDOMI NAL WALL AND SKELET AL STRUCT URES: Normal . FINDIN GS ON CT PELVIS : PELVIC CAVITY : Bladde r unrema rkable . Mild sigmoi d divert iculos is with no acute inflam mation The uterus is absent . No pelvic or inguin al lympha denopa thy, mass or fluid. MUSCUL OSKELE JESSA STRUCT URES: Normal . COMBIN ED IMPRES ANNIE: No eviden ce of renal stone or mass Interp reted By: Senthil Sampson MD Electr onical ly Signed By: Senthil Sampson MD on 021 1:59 PM [facility] [address] [place], [address], 02/03/2021 16:12:28 Result Notes None recorded. Procedures Surgical History Date Name Laterality Status Provider Name and Address Organization Details Recorded Time Cholecystectomy completed Murelene Parker [facility] 12/25/2020 15:10:04 Hysterectomy completed Murelene Parker [facility] 12/25/2020 15:10:13 Imaging Results None recorded. Procedure Notes None recorded. Medical Equipment None Reported. Allergies Allergen ID Allergen Name Allergen Category Reaction Reaction Severity Criticality Documentation Date Start Date Code Code System Note Provider Name and Address Organization Details Recorded Time 799418 morphine medicatio n Not available Not available Not available 12/25/2020 7052 RxNorm Murelene Parker [facility] 15:08:32 Medications Name Sig Start Date Stop Date Status Note LastModified by Organization Details LastModified Time Asprin Ec Low Dose 81 mg tablet,delayed release Take 1 tablet every day by oral route. active Not Available Not Available No t Available propranolol active Not Available Not A vailable Not Available pantoprazole active Not Available Not Available Not Available Vitals None Recorded Social History Question Answer Notes LastModified by Organizat ion Details LastModified Time Tobacco Smoking Status Current Every Day Smoker Keith Canales [facility] 12/25/2020 15:09:53 What Was The Date Of Your Most Recent Tobacco Screening? 12/25/2020 Information not available 12/25/2020 What Is Your Relationship Status? Information not available 12/25/2020 Sex: Unknown Functional Status Question Answer Note LastModified by Organization D etails LastModified Time What is your level of alcohol consumption? None [email or web address] Information not available 12/25/2020 Mental Status None recorded. Family History Relationship Description Onset Age of this Age Resolved Age Notes LastModified by Organization Details LastModified Time Brother Family history of malignant neoplasm ett1 Not available 2020 15:09:24 Medical History Condition Response False Teeth Y Gynecological HistoryNo gynecological history recorded. Obstetrics History GPAL:G 0 P 0 0 0 0 Past Encounters Encounter ID Performer Location Encounter Start Date Encounter Closed Date Diagnosis/Indication Diagnosis SNOMED-CT Code Diagnosis ICD10 Code Diagnosis Note [id number] OLGA MONDRAGON MD [address] [address] 12/25/2020 14:06:16 01/16/2021 16:20:28 Blood in urine 59675967 R31.9 Smoking mo nitoring status 375125079 Z87.640 [id number] OLGA MONDRAGON MD SURGERY SCHEDULE [address] [place] [address] 01/27/2021 14:37:47 01/27/2021 14:40:26 Health Concerns Section Related Observation LastModified by Organization Detai ls LastModified Time None Recorded Concern Status LastModified by Organization Details LastModified Time None Recorded Advance Directives Directive None Recorded Payers Insurance Date Sequence Insurance Name Policy Number Policy Albarado Covered Member ID Albarado Member ID Guarantor Name 03/06/2021 1 [employer] (MEDICARE REPLACEMENT/A DVANTAGE - PPO) Roxana Bustos [id number] Roxana Bustos Notes Date Note Type Note Provider Name and Address Organization Details Recorded Time 12/25/2020 text/html 65-year-old chris echols in the office for my evaluation and discussion of microscopic hematuria. No gross hematuria. No dysuria. She voids every 2 hours with nocturia one to 2 times nightly. Occasional hesitancy without urgency. No history of urolithiasis. 14-[id number]-mvkj smoking history. OLGA MONDRAGON MD [address] [place] [address], [address], [facility] 01/04/2021 16:32:24 OBGyn Episode No OBEpisode recorded.
[2024-10-28 11:23] LABS: Alanine Aminotransferase 21 U/L (12-78); Albumin Level 3.9 g/dl (3.5-5.0); Albumin/Globulin Ratio 1.3 (1.1-1.8); Alkaline Phosphatase 87 U/L (38-126); Anion Gap 5.9 mEq/L (5-15); Aspartate Amino Transferase 24 U/L (14-36); Bilirubin,Total 0.6 mg/dl (0.2-1.3); Blood Urea Nitrogen 18 mg/dl (7-17); Carbon Dioxide 32 mmol/L (22.0-30.0); Chloride 105 mmol/L (98-107); Creatinine Clearance Estimated 59 mL/min (50-200); Estimated Glomerular Filt Rate 62 ml/min (>60); GFR (African American) 75 ML/MIN (>60); Globulin 2.9 g/dL (1.3-3.2); Glucose 92 mg/dl (74-100); Magnesium 2.1 mg/dl (1.6-2.3); Potassium 3.9 mmoL/L (3.5-5.1); Sodium 139 mmol/L (136-145); Total Protein,Serum 6.8 g/dl (6.3-8.2)
[2024-10-28 11:28] LABS: Adenovirus,PCR Not Detected (NotDetected); Bordetella Pertussis Not Detected (NotDetected); Chlamydophila Pneumoniae, PCR Not Detected (NotDetected); Coronavirus 19, PCR Not Detected (NotDetected); Coronavirus 229E Not Detected (NotDetected); Coronavirus NL63 Not Detected (NotDetected); Coronavirus OC43 Not Detected (NotDetected); Coronovirus HKU1,PCR Not Detected (NotDetected); Human Metapneumovirus Not Detected (NotDetected); Influenza A, PCR Not Detected (NotDetected); Influenza AH1, 2009 Not Detected (NotDetected); Influenza AH1, PCR Not Detected (NotDetected); Influenza AH3,PCR Not Detected (NotDetected); Influenza B, PCR Not Detected (NotDetected); Mycoplasma Pneumoniae, PCR Not Detected (NotDetected); Parainfluenza 1, PCR Not Detected (NotDetected); Parainfluenza 2, PCR Not Detected (NotDetected); Parainfluenza 3, PCR Not Detected (NotDetected); Parainfluenza 4, PCR Not Detected (NotDetected); Respiratory Syncytial Virus Not Detected (NotDetected)
[2024-10-28] MEDS: METHYLPREDNISOLONE SOD SUCC 125MG VIAL 125 MG IV (11:30)
[2024-10-28] MEDS: IPRATROPIUM/ALBUTEROL 3 ML NEB 9 ML IH (11:30)
[2024-10-28 11:40] LABS: Procalcitonin 0.064 ng/mL (0.0-2.0)
[2024-10-28 11:45] LABS: Troponin I < 0.01 ng/ml (0.00-0.034)
--- NOTE | 2024-10-28 12:06 | EXP.HP ---
History of Present Illness *Admission Date: 10/28/24 *Reason for visit:: Dyspnea, increased productive cough *History of present illness: Ms. Bustos is a 69-year-old female with history of tobacco use and COPD who continues to smoke 1/2 pack a day. Presented to the ER with 3 to 4 days of worsening cough and congestion. States she is also had runny nose, eye discharge and occasional chills. No lalo fever. 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 Denies nausea or vomiting, chest pain, confusion. Having soreness when she coughs. Coughing has gotten so bad that this morning she lost control of her bladder. Workup in the ER concerning for COPD exacerbation with O2 sats in the 80s after nebulizers. Necessitating oxygen. Wears it intermittently at home since admission earlier this year [facility] for pneumonia. Medicine consulted for admission and further management On evaluation after arriving to the floor, is alert and oriented x 3. In no acute distress. Appears comfortable on 2 L oxygen. [facility] Disclaimer: The information contained in this section may have been updated after the patient was seen, as this information can be updated by other users. Medical History (Updated 10/28/24 @ 16:08 by Tyrone Nassar MD) Tachycardia HLD (hyperlipidemia) COPD (chronic obstructive pulmonary disease) GERD (gastroesophageal reflux disease) Surgical History (Updated 10/28/24 @ 14:31 by Alma Rosa Escobar RN) Hx of cholecystectomy H/O: hysterectomy Social History (Updated 10/28/24 @ 14:31 by Alma Rosa Escobar RN) Smoking Status: Current every day smoker alcohol intake: never current occupational status: employed and unemployed Travel in the last 8 weeks?: None Have you lived/traveled outside US in past 30 days?: No Contact w/someone who lives/traveled outside US past 30 days?: No Exposure to someone with infectious disease in past 14 days?: No Do you have a fever (greater than 100.4 F or 38 C)?: No Have you tested positive for COVID-19?: No Exposed to someone with COVID-19 in past 14 days?: No Do you have a sore throat?: No Do you have a cough?: No Do you have any weakness?: No Do you have any diarrhea?: No Are you experiencing any unusual bleeding?: No Do you have any muscle aches/pain?: No Do you have any abdominal pain?: No Are you experiencing loss of taste or smell?: No Review of Systems Review of Systems Review of systems (narrative): 14 point review of systems performed, pertinent positives and negatives as per [facility] Meds Home Medications and Allergies Home Medications ?Medication ?Instructions ?Recorded ?Confirmed ?Type alendronate 70 mg tablet 70 mg PO WEEKLY 10/28/24 10/28/24 History atorvastatin 20 mg tablet 20 mg PO HS 10/28/24 10/28/24 History ergocalciferol (vitamin D2) 1,250 1,250 mcg PO WEEKLY 10/28/24 10/28/24 History mcg (50,000 unit) capsule fluticasone fur. 200 mcg-umeclid 1 ea inhalation DAILY 10/28/24 10/28/24 History 62.5 mcg-vilant 25 mcg inhalat.powder (Trelegy Ellipta) loratadine 10 mg tablet 10 mg PO DAILY 10/28/24 10/28/24 History metoprolol succinate 25 mg 25 mg PO DAILY 10/28/24 10/28/24 History tablet,extended release 24 hr pantoprazole 40 mg tablet,delayed 40 mg PO DAILY 10/28/24 10/28/24 History release New Prescriptions to Start Prescriptions: Allergies Allergy/AdvReac Type Severity Reaction Status Date / Time morphine Allergy Redness of Verified 10/28/24 14:23 Skin Exam Data for Last 24 hours Vital signs and Labs for Last 24 Hours: Temp Pulse Resp BP Pulse Ox O2 Del Method O2 Flow Rate 97.8 F 102 H 18 126/61 95 Nasal Cannula 2 10/28/24 10:33 10/28/24 12:00 10/28/24 12:00 10/28/24 12:00 10/28/24 12:00 10/28/24 12:00 10/28/24 12:00 Laboratory Results - last 24 hr 10/28/24 10:45: WBC 7.3, RBC 4.23, Hgb 13.4, Hct 41.1, MCV 97.2, MCH 31.7 H, MCHC 32.6, RDW 11.9, Plt Count 207, MPV 9.5, Neut % (Auto) 62.1, Lymph % (Auto) 24.9, [place] % (Auto) 11.9 H, Eos % (Auto) 0.1, Baso % (Auto) 0.3, Neut # (Auto) 4.5, Lymph # (Auto) 1.8, [place] # (Auto) 0.9, Eos # (Auto) 0.0, Baso # (Auto) 0.0, Sodium 139, Potassium 3.9, Chloride 105, Carbon Dioxide 32 H, Anion Gap 5.9, BUN 18 H, Creatinine 0.90, Estimated Creat Clear 59, Estimated GFR 62, Est GFR ( Amer) 75, Glucose 92, Calcium 9.0, Magnesium 2.1, Total Bilirubin 0.6, AST 24, ALT 21, Alkaline Phosphatase 87, Troponin I < 0.01, Total Protein 6.8, Albumin 3.9, Globulin 2.9, Albumin/Globulin Ratio 1.3, Procalcitonin 0.064 10/28/24 11:15: SARS-CoV-2 (PCR) Not detected, Influenza A Untype (PCR) Not detected, Influenza Type B (PCR) Not detected I & O for Last 24 hours: Intake & Output 10/25/24 10/26/24 10/27/24 10/28/24 23:59 23:59 23:59 23:59 Weight 72.575 kg Constitutional Constitutional: mild distress, obese, chronically ill appearing and cooperative *Routine HEENT Exam Head: Present normocephalic Eye: Present EOMI and PERRL ENT: Present mucous membranes moist *Routine Neck Exam Neck: Present supple; Absent lymphadenopathy *Routine Respiratory Exam Respiratory: Present prolonged expiratory phase, rhonchi and wheezes; Absent crackles *Routine Cardiovascular Exam Cardiovascular: Present RRR *Routine Abdominal Exam Abdominal: Present soft and normoactive bowel sounds; Absent tenderness *Routine Rectal Exam Rectal:: deferred *Routine Genitalia Exam Genitalia:: deferred *Routine Extremities Exam Extremities: Absent cyanosis, clubbing or edema *Routine Skin Exam Skin: Present warm; Absent rash *Routine Neurological Exam Neurological: Present alert, oriented X3 and moving all extremities; Absent altered mental status Assessment and Plan *Assessment and plan (1) Acute exacerbation of chronic obstructive airways disease: Status: Acute Category: Medical Code(s): J44.1 - Chronic obstructive pulmonary disease with (acute) exacerbation (2) Acute on chronic hypoxic respiratory failure: Status: Acute Category: Medical Code(s): J96.21 - Acute and chronic respiratory failure with hypoxia (3) Obesity (BMI 30.0-34.9): Status: Acute Category: Medical Code(s): E66.811 - Obesity, class 1 (4) Tobacco use disorder: Status: Acute Category: Medical Code(s): F17.200 - Nicotine dependence, unspecified, uncomplicated (5) Enteroviral infection: Status: Acute Category: Medical Code(s): B34.1 - Enterovirus infection, unspecified Plan 69-year-old female who presents with worsening shortness of breath, cough, productive sputum. Found to have new oxygen requirement. Discussed case with ER physician, request admission for treatment of COPD exacerbation and respiratory failure. I agreed to admit for further care. Respiratory panel returned positive shortly after admission with rhino/enterovirus. Continue antibiotics, steroids, nebulizers. Pulmonology consulted to evaluate in the morning. Problems addressed as follows COPD exacerbation secondary to enteroviral infection Acute hypoxemic respiratory failure - Wears oxygen as needed at home. Has for the past 3 months. Usually wears 1-2 times a week. O2 sats in the 80s after nebulizers. Necessitating 2 L to maintain sats above 90%. - Respiratory panel positive for rhino/enterovirus - Initiated on azithromycin 500 mg once in the ED along with methylprednisolone. Continue azithromycin 250 mg daily to complete 5-day course and prednisone 40 mg daily - Pulmonology consulted to evaluate the morning - Continue DuoNebs every 6 hours scheduled, budesonide twice daily - Chest imaging per my review with no focal consolidation or airspace disease - White count normal at 7.3, kidney function normal BUN 18, creatinine 0.9. - Hold home maintenance inhaler at this time, resume Trelegy 200 inhaler at discharge Tobacco use disorder: Smokes half pack a day. Discussed the benefits of smoking, total discussion 12min. Interested in quitting. Patch in place. Would like patches at home. Continue patch daily Obesity: Complicates all aspects of her care Continue Lipitor 20 mg nightly for hyperlipidemia Continue with metoprolol succinate 25 mg daily for hypertension Continue pantoprazole 40 mg daily for GERD Full code Regular diet
--- NOTE | 2024-10-28 12:36 | PC.NURSE ---
called report to cora espitia
[2024-10-28] MEDS: CEFTRIAXONE 1 GM 1 GM in 0.9 % SODIUM CHLORIDE 50 ML IV (12:39)
[2024-10-28 12:45] LABS: Rhinovirus/Enterovirus Detected (NotDetected)
[2024-10-28 12:58] LABS: HIV Combo NEGATIVE (Negative)
[2024-10-28 13:05] LABS: Hepatitis C Ab Qual. W/ RFX NEGATIVE (Negative)
[2024-10-28] MEDS: AZITHROMYCIN 500 MG in 0.9 % SODIUM CHLORIDE 250 ML 250 MG IV (14:52)
[2024-10-28 14:56] LABS: Troponin I < 0.01 ng/ml (0.00-0.034)
[2024-10-28] MEDS: NICOTINE 21MG/24HR PATCH 21 MG TD (15:07)
[2024-10-28] MEDS: ENOXAPARIN 40MG/0.4ML SYRINGE 40 MG SUBCUT (16:40)
[2024-10-28 18:06] LABS: Troponin I < 0.01 ng/ml (0.00-0.034)
[2024-10-28] MEDS: BUDESONIDE 0.5MG/2ML NEB 0.5 MG IH (18:26)
[2024-10-28] MEDS: IPRATROPIUM/ALBUTEROL 3 ML NEB IH ×2 (18:26→23:04)
[2024-10-28] MEDS: ATORVASTATIN 20MG TABLET 20 MG PO (20:46)
[2024-10-28] MEDS: diphenhydrAMINE 25MG CAPSULE 25 MG PO (21:58)
--- NOTE | 2024-10-29 03:21 | PC.NURSE ---
PT AOx4, pleasant. Continually denies pain or any additional needs. Received benadryl HS to help her sleep. Pt has been resting in bed with eyes closed. Respirations even and unlabored. 2L nasal cannula. Bed is low, locked, and call light is in reach.
[2024-10-29 04:00] VITALS: BP 143/80; PULSE 104; RESP 17; TEMP 36.8; O2SAT 99; BMI 31.8
[2024-10-29] MEDS: FUROSEMIDE 40MG/4ML VIAL 40 MG IV (05:17)
[2024-10-29] MEDS: IPRATROPIUM/ALBUTEROL 3 ML NEB IH ×2 (06:09→11:17)
[2024-10-29] MEDS: BUDESONIDE 0.5MG/2ML NEB 0.5 MG IH (06:09)
[2024-10-29 06:10] VITALS: PULSE 102; PULSE 98; O2SAT 96
[2024-10-29 06:49] LABS: Basophils % 0.1 % (0.1-2.0); Hematocrit 42.2 % (37.0-47.0); Hemoglobin 13.8 g/dL (12.2-16.2); Immature Granulocytes # 0.04 10^3uL; Immature Granulocytes % 0.5 %; Lymphocytes # 1.7 K/mm3 (0.7-4.5); Lymphocytes % 21.8 % (10-50); Mean Corpuscular HGB Conc 32.7 g/dL (31.8-35.4); Mean Corpuscular Hemoglobin 31.7 pg (27.0-31.2); Mean Platelet Volume 9.3 fl (7.4-10.4); Monocytes # 0.7 K/mm3 (0.1-1.0); Monocytes % 9.3 % (1.7-9.3); Neutrophils # 5.5 K/mm3 (1.8-7.8); Neutrophils % 68.3 % (37.0-80.0); Nucleated Red Blood Cells # 0 10^3/uL; Nucleated Red Blood Cells % 0 %; Platelet Count 198 K/mm3 (142-424); Red Blood Count 4.35 M/mm3 (4.20-5.40); Red Cell Distribution Width 11.8 % (11.5-17.5); Red Cell Distribution Width-SD 42.6 fL
[2024-10-29 07:10] LABS: Albumin Level 4.2 g/dl (3.5-5.0); Chloride 104 mmol/L (98-107); Sodium 138 mmol/L (136-145)
[2024-10-29 07:13] LABS: Alanine Aminotransferase 25 U/L (12-78); Albumin/Globulin Ratio 1.4 (1.1-1.8); Alkaline Phosphatase 96 U/L (38-126); Aspartate Amino Transferase 29 U/L (14-36); Bilirubin,Total 0.3 mg/dl (0.2-1.3); Blood Urea Nitrogen 19 mg/dl (7-17); Carbon Dioxide 30 mmol/L (22.0-30.0); Creatinine Clearance Estimated 60 mL/min (50-200); Estimated Glomerular Filt Rate 55 ml/min (>60); GFR (African American) 66 ML/MIN (>60); Globulin 2.9 g/dL (1.3-3.2); Total Protein,Serum 7.1 g/dl (6.3-8.2)
[2024-10-29 07:14] LABS: Calcium 9.1 mg/dl (8.4-10.2); Glucose 117 mg/dl (74-100); Magnesium 2.1 mg/dl (1.6-2.3)
--- NOTE | 2024-10-29 07:45 | EXP.DC.SUM ---
General Admission date:: 10/28/24 Discharge date: 10/29/24 HPI HPI HPI: Ms. Bustos is a 69-year-old female with history of tobacco use and COPD who continues to smoke 1/2 pack a day. Presented to the ER with 3 to 4 days of worsening cough and congestion. States she is also had runny nose, eye discharge and occasional chills. No lalo fever. 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 Denies nausea or vomiting, chest pain, confusion. Having soreness when she coughs. Coughing has gotten so bad that this morning she lost control of her bladder. Workup in the ER concerning for COPD exacerbation with O2 sats in the 80s after nebulizers. Necessitating oxygen. Wears it intermittently at home since admission earlier this year [facility] for pneumonia. Medicine consulted for admission and further management On evaluation after arriving to the floor, is alert and oriented x 3. In no acute distress. Appears comfortable on 2 L oxygen. Hospital Course Hospital Course Hospital Course: 69-year-old female who presents with worsening shortness of breath, cough, productive sputum. Found to have new oxygen requirement. Discussed case with ER physician, request admission for treatment of COPD exacerbation and respiratory failure. I agreed to admit for further care. Respiratory panel returned positive shortly after admission with rhino/enterovirus. Initiated on empiric antibiotics and steroids for COPD exacerbation. Pulmonology evaluated in the morning. Stable oxygen requirement. Will discharge home with close follow-up. Problems addressed as follows: COPD exacerbation secondary to enteroviral infection Acute hypoxemic respiratory failure - Wears oxygen as needed at home. Has for the past 3 months. Usually wears 1-2 times a week. O2 sats in the 80s after nebulizers in the ER. Necessitated 2 L oxygen during admission to maintain sats above 90%. Respiratory panel obtained on admission positive for rhino/enterovirus. Patient was initiated on azithromycin 500 mg once in the ER and methylprednisolone. Pulmonology consulted. Will continue prednisone 40 mg daily to complete 5 days of steroids. White count normal at 8 on day of discharge. Given viral etiology, continue azithromycin to complete 5 days total of antibiotics for COPD exacerbation. On morning of discharge, continues to require 2 L oxygen continuously via nasal cannula to maintain sats above 90%. Patient's room air saturation at rest on morning of discharge was 88%. Chest imaging per my review with no focal consolidation or airspace disease. Continue Trelegy 200 inhaler along with DuoNebs every 6 hours as needed. Follow-up closely with pulmonology as an outpatient. Tobacco use disorder: Smokes half pack a day. Discussed the benefits of smoking, total discussion 12min. Interested in quitting. Patch in place. Would like patches at home. Continue patch daily Obesity: Complicates all aspects of her care Continue Lipitor 20 mg nightly for hyperlipidemia Continue with metoprolol succinate 25 mg daily for hypertension Continue pantoprazole 40 mg daily for GERD Total time spent on discharge 35 minutes in counseling, documentation, chart review, and direct care with patient. Exam Data for Last 24 hours Vital signs and Labs for Last 24 Hours: Temp Pulse Resp BP Pulse Ox O2 Del Method O2 Flow Rate 98.2 F 98 H 17 143/80 H 96 Nasal Cannula 2 10/29/24 04:00 10/29/24 06:10 10/29/24 04:00 10/29/24 04:00 10/29/24 06:10 10/29/24 06:33 10/29/24 06:33 Laboratory Results - last 24 hr 10/28/24 10:45: WBC 7.3, RBC 4.23, Hgb 13.4, Hct 41.1, MCV 97.2, MCH 31.7 H, MCHC 32.6, RDW 11.9, Plt Count 207, MPV 9.5, Neut % (Auto) 62.1, Lymph % (Auto) 24.9, [place] % (Auto) 11.9 H, Eos % (Auto) 0.1, Baso % (Auto) 0.3, Neut # (Auto) 4.5, Lymph # (Auto) 1.8, [place] # (Auto) 0.9, Eos # (Auto) 0.0, Baso # (Auto) 0.0, Sodium 139, Potassium 3.9, Chloride 105, Carbon Dioxide 32 H, Anion Gap 5.9, BUN 18 H, Creatinine 0.90, Estimated Creat Clear 59, Estimated GFR 62, Est GFR ( Amer) 75, Glucose 92, Calcium 9.0, Magnesium 2.1, Total Bilirubin 0.6, AST 24, ALT 21, Alkaline Phosphatase 87, Troponin I < 0.01, Total Protein 6.8, Albumin 3.9, Globulin 2.9, Albumin/Globulin Ratio 1.3, Procalcitonin 0.064, HCV Ab MARA w/Rflx PCR Qn Negative, HIV Ag/Ab Combo Qual Negative 10/28/24 11:15: Chlamy pneumoniae PCR Not detected, Adenovirus (PCR) Not detected, B. pertussis DNA (PCR) Not detected, Coronavirus OC43 (PCR) Not detected, Coronavirus HKU1 (PCR) Not detected, Coronavirus 229E (PCR) Not detected, SARS-CoV-2 (PCR) Not detected 10/28/24 11:15: SARS-CoV-2 (PCR) Not detected, Coronavirus NL63 (PCR) Not detected, Human Metapneumovir PCR Not detected, Influenza A (H1) PCR Not detected, Influ A (H1N1/09) PCR Not detected, Influenza A (H3) PCR Not detected, Influenza Type A (PCR) Not detected, Influenza A Untype (PCR) Not detected, Influenza Type B (PCR) Not detected 10/28/24 11:15: Influenza Type B (PCR) Not detected, M. pneumoniae (PCR) Not detected, Parainfluenza 1 (PCR) Not detected, Parainfluenza 2 (PCR) Not detected, Parainfluenza 3 (PCR) Not detected, Parainfluenza 4 (PCR) Not detected, RSV (PCR) Not detected, Entero/Rhino (PCR) Detected A 10/28/24 14:25: Troponin I < 0.01 10/28/24 17:30: Troponin I < 0.01 10/29/24 06:12: WBC 8.0, RBC 4.35, Hgb 13.8, Hct 42.2, MCV 97.0, MCH 31.7 H, MCHC 32.7, RDW 11.8, Plt Count 198, MPV 9.3, Neut % (Auto) 68.3, Lymph % (Auto) 21.8, [place] % (Auto) 9.3, Eos % (Auto) 0.0 L, Baso % (Auto) 0.1, Neut # (Auto) 5.5, Lymph # (Auto) 1.7, [place] # (Auto) 0.7, Eos # (Auto) 0.0, Baso # (Auto) 0.0 I & O for Last 24 hours: Intake & Output 10/26/24 10/27/24 10/28/24 10/29/24 23:59 23:59 23:59 23:59 Intake Total 760 / 760 Output Total 0 / 0 0 / 0 Balance 760 / 760 0 / 0 Weight 73.539 kg 73.539 kg Constitutional Constitutional: no acute distress, chronically ill appearing and cooperative *Routine HEENT Exam Head: Present normocephalic Eye: Present EOMI and PERRL ENT: Present mucous membranes moist *Routine Neck Exam Neck: Present supple; Absent lymphadenopathy *Routine Respiratory Exam Respiratory: Present prolonged expiratory phase and wheezes; Absent accessory muscle use, rhonchi or crackles *Routine Cardiovascular Exam Cardiovascular: Present RRR *Routine Abdominal Exam Abdominal: Present soft and normoactive bowel sounds; Absent tenderness *Routine Rectal Exam Patient deferred: visual exam *Routine Exam Patient deferred: external exam *Routine Extremities Exam Extremities: Absent cyanosis, clubbing or edema *Routine Skin Exam Skin: Present intact and warm; Absent rash *Routine Neurological Exam Neurological: Present alert, oriented X3 and moving all extremities; Absent altered mental status Results Data Completed and Pending Labs on day of discharge: Labs from last 24 hours 10/29/24 10/28/24 10/28/24 06:12 17:30 14:25 WBC 8.0 RBC 4.35 Hgb 13.8 Hct 42.2 MCV 97.0 MCH 31.7 H MCHC 32.7 RDW 11.8 Plt Count 198 MPV 9.3 Neut % (Auto) 68.3 Lymph % (Auto) 21.8 [place] % (Auto) 9.3 Eos % (Auto) 0.0 L Baso % (Auto) 0.1 Neut # (Auto) 5.5 Lymph # (Auto) 1.7 [place] # (Auto) 0.7 Eos # (Auto) 0.0 Baso # (Auto) 0.0 Sodium Potassium Chloride Carbon Dioxide Anion Gap BUN Creatinine Estimated Creat Clear Estimated GFR Est GFR ( Amer) Glucose Calcium Magnesium Total Bilirubin AST ALT Alkaline Phosphatase Troponin I < 0.01 < 0.01 Total Protein Albumin Globulin Albumin/Globulin Ratio Procalcitonin Chlamy pneumoniae PCR Adenovirus (PCR) B. pertussis DNA (PCR) Coronavirus OC43 (PCR) Coronavirus HKU1 (PCR) Coronavirus 229E (PCR) SARS-CoV-2 (PCR) Coronavirus NL63 (PCR) HCV Ab MARA w/Rflx PCR Qn HIV Ag/Ab Combo Qual Human Metapneumovir PCR Influenza A (H1) PCR Influ A (H1N1/09) PCR Influenza A (H3) PCR Influenza Type A (PCR) Influenza A Untype (PCR) Influenza Type B (PCR) M. pneumoniae (PCR) Parainfluenza 1 (PCR) Parainfluenza 2 (PCR) Parainfluenza 3 (PCR) Parainfluenza 4 (PCR) RSV (PCR) Entero/Rhino (PCR) 10/28/24 10/28/24 10/28/24 11:15 11:15 11:15 WBC RBC Hgb Hct MCV MCH MCHC RDW Plt Count MPV Neut % (Auto) Lymph % (Auto) [place] % (Auto) Eos % (Auto) Baso % (Auto) Neut # (Auto) Lymph # (Auto) [place] # (Auto) Eos # (Auto) Baso # (Auto) Sodium Potassium Chloride Carbon Dioxide Anion Gap BUN Creatinine Estimated Creat Clear Estimated GFR Est GFR ( Amer) Glucose Calcium Magnesium Total Bilirubin AST ALT Alkaline Phosphatase Troponin I Total Protein Albumin Globulin Albumin/Globulin Ratio Procalcitonin Chlamy pneumoniae PCR Not detected Adenovirus (PCR) Not detected B. pertussis DNA (PCR) Not detected Coronavirus OC43 (PCR) Not detected Coronavirus HKU1 (PCR) Not detected Coronavirus 229E (PCR) Not detected SARS-CoV-2 (PCR) Not detected Not detected Coronavirus NL63 (PCR) Not detected HCV Ab MARA w/Rflx PCR Qn HIV Ag/Ab Combo Qual Human Metapneumovir PCR Not detected Influenza A (H1) PCR Not detected Influ A (H1N1/09) PCR Not detected Influenza A (H3) PCR Not detected Influenza Type A (PCR) Not detected Influenza A Untype (PCR) Not detected Influenza Type B (PCR) Not detected Not detected M. pneumoniae (PCR) Not detected Parainfluenza 1 (PCR) Not detected Parainfluenza 2 (PCR) Not detected Parainfluenza 3 (PCR) Not detected Parainfluenza 4 (PCR) Not detected RSV (PCR) Not detected Entero/Rhino (PCR) Detected A 10/28/24 10:45 WBC 7.3 RBC 4.23 Hgb 13.4 Hct 41.1 MCV 97.2 MCH 31.7 H MCHC 32.6 RDW 11.9 Plt Count 207 MPV 9.5 Neut % (Auto) 62.1 Lymph % (Auto) 24.9 [place] % (Auto) 11.9 H Eos % (Auto) 0.1 Baso % (Auto) 0.3 Neut # (Auto) 4.5 Lymph # (Auto) 1.8 [place] # (Auto) 0.9 Eos # (Auto) 0.0 Baso # (Auto) 0.0 Sodium 139 Potassium 3.9 Chloride 105 Carbon Dioxide 32 H Anion Gap 5.9 BUN 18 H Creatinine 0.90 Estimated Creat Clear 59 Estimated GFR 62 Est GFR ( Amer) 75 Glucose 92 Calcium 9.0 Magnesium 2.1 Total Bilirubin 0.6 AST 24 ALT 21 Alkaline Phosphatase 87 Troponin I < 0.01 Total Protein 6.8 Albumin 3.9 Globulin 2.9 Albumin/Globulin Ratio 1.3 Procalcitonin 0.064 Chlamy pneumoniae PCR Adenovirus (PCR) B. pertussis DNA (PCR) Coronavirus OC43 (PCR) Coronavirus HKU1 (PCR) Coronavirus 229E (PCR) SARS-CoV-2 (PCR) Coronavirus NL63 (PCR) HCV Ab MARA w/Rflx PCR Qn Negative HIV Ag/Ab Combo Qual Negative Human Metapneumovir PCR Influenza A (H1) PCR Influ A (H1N1/09) PCR Influenza A (H3) PCR Influenza Type A (PCR) Influenza A Untype (PCR) Influenza Type B (PCR) M. pneumoniae (PCR) Parainfluenza 1 (PCR) Parainfluenza 2 (PCR) Parainfluenza 3 (PCR) Parainfluenza 4 (PCR) RSV (PCR) Entero/Rhino (PCR) DS: Diagnosis Discharge Diagnosis (1) Acute exacerbation of chronic obstructive airways disease: Status: Acute Code(s): J44.1 - Chronic obstructive pulmonary disease with (acute) exacerbation (2) Acute on chronic hypoxic respiratory failure: Status: Acute Code(s): J96.21 - Acute and chronic respiratory failure with hypoxia (3) Obesity (BMI 30.0-34.9): Status: Acute Code(s): E66.811 - Obesity, class 1 (4) Tobacco use disorder: Status: Acute Code(s): F17.200 - Nicotine dependence, unspecified, uncomplicated (5) Enteroviral infection: Status: Acute Code(s): B34.1 - Enterovirus infection, unspecified Meds Home Medications and Allergies Home Medications ?Medication ?Instructions ?Recorded ?Confirmed ?Type alendronate 70 mg tablet 70 mg PO WEEKLY 10/28/24 11/02/24 History atorvastatin 20 mg tablet 20 mg PO HS 10/28/24 11/02/24 History ergocalciferol (vitamin D2) 1,250 1,250 mcg PO WEEKLY 10/28/24 11/02/24 History mcg (50,000 unit) capsule fluticasone fur. 200 mcg-umeclid 1 ea inhalation DAILY 10/28/24 11/02/24 History 62.5 mcg-vilant 25 mcg inhalat.powder (Trelegy Ellipta) loratadine 10 mg tablet 10 mg PO DAILY 10/28/24 11/02/24 History metoprolol succinate 25 mg 25 mg PO DAILY 10/28/24 11/02/24 History tablet,extended release 24 hr pantoprazole 40 mg tablet,delayed 40 mg PO DAILY 10/28/24 11/02/24 History release ipratropium 0.5 mg-albuterol 3 mg 3 ml inhalation Q4HP PRN shortness 10/29/24 11/02/24 Rx (2.5 mg base)/3 mL nebulization of breath or wheezing #180 mL soln nicotine 21 mg/24 hr daily 21 mg transdermal DAILYP PRN 10/29/24 11/02/24 Rx transdermal patch Nicotine Cravings 28 days #28 ea New Prescriptions to Start Prescriptions: ipratropium-albuterol Tyrone Nassar nicotine Tyrone Nassar Allergies Allergy/AdvReac Type Severity Reaction Status Date / Time morphine Allergy Redness of Verified 11/02/24 10:42 Skin Discharge Plan Disposition Patient Disposition: Home, Self-Care Condition: Fair Follow up Plan Follow up with: Sabi Pak APRN [Referring, Medical] - 11/05/24 11:00 am Aldo Cararsquillo MD [Physician, Pulmonology] - 11/05/24 3:00 pm Prescriptions/Medication Reconciliation: New nicotine 21 mg/24 hr Patch 24 Hour 21 mg transdermal DAILYP PRN (Reason: Nicotine Cravings) 28 Days Qty: 28 0RF ipratropium-albuterol 0.5 mg-3 mg(2.5 mg base)/3 mL Solution For Nebulization 3 ml inhalation Q4HP PRN (Reason: shortness of breath or wheezing) Qty: 180 0RF Continued atorvastatin 20 mg tablet 20 mg PO HS Patient Comments: TAKE 1 TABLET BY MOUTH ONCE DAILY alendronate 70 mg tablet 70 mg PO WEEKLY pantoprazole 40 mg tablet,delayed release (DR/EC) 40 mg PO DAILY Patient Comments: TAKE 1 TABLET BY MOUTH ONCE DAILY metoprolol succinate 25 mg tablet extended release 24 hr 25 mg PO DAILY ergocalciferol (vitamin D2) 1,250 mcg (50,000 unit) capsule 1,250 mcg PO WEEKLY Patient Comments: TAKE 1 CAPSULE BY MOUTH ONCE A WEEK loratadine 10 mg tablet 10 mg PO DAILY Patient Comments: TAKE 1 TABLET BY MOUTH ONCE DAILY Trelegy Ellipta 200-62.5-25 mcg blister with device 1 ea INHALATION DAILY Patient Comments: INHALE 1 PUFF BY MOUTH ONCE DAILY Other Ambulatory Orders: Home Medical Equipment (Routine) Location: None Selected Ordered By: Tyrone Nassar Problem Reconciliation Problems Reviewed?: Yes Patient Discharge Instructions ACTIVITY: Continue current activity DIET: continue same diet Patient Instructions: DI for Chronic Obstructive Pulmonary Disease, DI for Respiratory Failure, Stop Light Pneumonia, Stop Light COPD Print Language: Citizen Of [place] Providers Primary Care Provider: Provider,Referral Admit Provider: Tyrone Nassar Attending Provider: Tyrone Nassar
--- NOTE | 2024-10-29 07:56 | HMH.PHAINT1 ---
Pharmacy Intervention Comments: HOME MEDICATION LIST VERIFIED USING LIST FROM OUTPATIENT PHARMACY
[2024-10-29 08:00] VITALS: BP 126/66; PULSE 116; RESP 20; TEMP 36.7; O2SAT 95
[2024-10-29 09:07] VITALS: O2SAT 88
--- NOTE | 2024-10-29 09:07 | PC.NURSE ---
TECH NOTE; PATIENT ROOM AIR SATURATION OF 88, HOSPITALIST NOTIFIED Nimesh LÓPEZ, SRNA
[2024-10-29] MEDS: METOPROLOL SUCCINATE XL 25MG TABLET 25 MG PO (09:48)
[2024-10-29] MEDS: AZITHROMYCIN 250MG TABLET 250 MG PO (09:48)
[2024-10-29] MEDS: predniSONE 20MG TAB 40 MG PO (09:48)
[2024-10-29] MEDS: ACETAMINOPHEN 325MG TAB 650 MG PO (09:50)
--- NOTE | 2024-10-29 09:50 | EXP.PULM.CON ---
History of Present Illness History of present illness: Ms. Bustos is a 69-year-old female history of COPD tobacco abuse presented with worsening respiratory distress, and pulmonary was called for further evaluation and management. Greater than [id number] smoking history, current smoker smoking half pack a day. Using Trelegy 200 inhaler at baseline. Patient was also given oxygen supplementation during her hospital discharge for pneumonia around June 2024. He is she is not using any oxygen supplementation prior to that. [facility] Disclaimer: The information contained in this section may have been updated after the patient was seen, as this information can be updated by other users. Medical History (Updated 10/28/24 @ 16:08 by Tyrone Nassar MD) Tachycardia HLD (hyperlipidemia) COPD (chronic obstructive pulmonary disease) GERD (gastroesophageal reflux disease) Surgical History (Updated 10/28/24 @ 14:31 by Alma Rosa Escobar RN) Hx of cholecystectomy H/O: hysterectomy Social History (Updated 10/28/24 @ 14:31 by Alma Rosa Escobar RN) Smoking Status: Current every day smoker alcohol intake: never current occupational status: employed and unemployed Travel in the last 8 weeks?: None Have you lived/traveled outside [place] in past 30 days?: No Contact w/someone who lives/traveled outside [place] past 30 days?: No Exposure to someone with infectious disease in past 14 days?: No Do you have a fever (greater than 100.4 F or 38 C)?: No Have you tested positive for COVID-19?: No Exposed to someone with COVID-19 in past 14 days?: No Do you have a sore throat?: No Do you have a cough?: No Do you have any weakness?: No Do you have any diarrhea?: No Are you experiencing any unusual bleeding?: No Do you have any muscle aches/pain?: No Do you have any abdominal pain?: No Are you experiencing loss of taste or smell?: No Review of Systems Constitutional Constitutional: Reports anorexia, Reports body ache(s) and Reports fatigue Eyes Eyes: Denies eye discharge, Denies dry eyes, Denies irritation and Denies itchy eyes ENT Ears, Nose, Mouth, and Throat: Denies epistaxis, Denies facial pain, Denies lip swelling and Denies throat swelling *Cardiovascular Cardiovascular: Reports dyspnea and Reports dyspnea on exertion *Respiratory Respiratory: Denies change in phlegm color, Reports chest congestion, Reports cough, Reports dyspnea, Reports dyspnea on exertion, Reports excessive phlegm production, Denies hemoptysis, Denies pain on inspiration, Denies pain with cough and Reports wheezing *Gastrointestinal Gastrointestinal: Denies abdominal pain, Denies belching and Denies cramping *Musculoskeletal Musculoskeletal: Reports back pain, Reports myalgias and Reports other (No small joint swelling or Pain) Psychiatric Psychiatric: Denies homicidal ideation and Denies suicidal ideation Endocrine Endocrine: Reports fatigue and Denies heat intolerance Hematologic/Lymphatic Hematologic/Lymphatic: Denies easy bleeding and Denies lymphadenopathy Allergic/Immunologic Allergic/Immunologic: Denies itchy eyes, Denies lip swelling, Denies throat swelling and Reports wheezing Pulmonology Exam Inpatient Vital signs and Labs for Last 24 Hours: Temp Pulse Resp BP Pulse Ox O2 Del Method O2 Flow Rate 98.0 F 116 H 20 126/66 88 L Room Air 3 10/29/24 08:00 10/29/24 08:00 10/29/24 08:00 10/29/24 08:00 10/29/24 09:07 10/29/24 09:07 10/29/24 08:00 Laboratory Results - last 24 hr 10/28/24 10:45: WBC 7.3, RBC 4.23, Hgb 13.4, Hct 41.1, MCV 97.2, MCH 31.7 H, MCHC 32.6, RDW 11.9, Plt Count 207, MPV 9.5, Neut % (Auto) 62.1, Lymph % (Auto) 24.9, Stewart % (Auto) 11.9 H, Eos % (Auto) 0.1, Baso % (Auto) 0.3, Neut # (Auto) 4.5, Lymph # (Auto) 1.8, Stewart # (Auto) 0.9, Eos # (Auto) 0.0, Baso # (Auto) 0.0, Sodium 139, Potassium 3.9, Chloride 105, Carbon Dioxide 32 H, Anion Gap 5.9, BUN 18 H, Creatinine 0.90, Estimated Creat Clear 59, Estimated GFR 62, Est GFR ( Amer) 75, Glucose 92, Calcium 9.0, Magnesium 2.1, Total Bilirubin 0.6, AST 24, ALT 21, Alkaline Phosphatase 87, Troponin I < 0.01, Total Protein 6.8, Albumin 3.9, Globulin 2.9, Albumin/Globulin Ratio 1.3, Procalcitonin 0.064, HCV Ab MARA w/Rflx PCR Qn Negative, HIV Ag/Ab Combo Qual Negative 10/28/24 11:15: Chlamy pneumoniae PCR Not detected, Adenovirus (PCR) Not detected, B. pertussis DNA (PCR) Not detected, Coronavirus OC43 (PCR) Not detected, Coronavirus HKU1 (PCR) Not detected, Coronavirus 229E (PCR) Not detected, SARS-CoV-2 (PCR) Not detected 10/28/24 11:15: SARS-CoV-2 (PCR) Not detected, Coronavirus NL63 (PCR) Not detected, Human Metapneumovir PCR Not detected, Influenza A (H1) PCR Not detected, Influ A (H1N1/09) PCR Not detected, Influenza A (H3) PCR Not detected, Influenza Type A (PCR) Not detected, Influenza A Untype (PCR) Not detected, Influenza Type B (PCR) Not detected 10/28/24 11:15: Influenza Type B (PCR) Not detected, M. pneumoniae (PCR) Not detected, Parainfluenza 1 (PCR) Not detected, Parainfluenza 2 (PCR) Not detected, Parainfluenza 3 (PCR) Not detected, Parainfluenza 4 (PCR) Not detected, RSV (PCR) Not detected, Entero/Rhino (PCR) Detected A 10/28/24 14:25: Troponin I < 0.01 10/28/24 17:30: Troponin I < 0.01 10/29/24 06:12: WBC 8.0, RBC 4.35, Hgb 13.8, Hct 42.2, MCV 97.0, MCH 31.7 H, MCHC 32.7, RDW 11.8, Plt Count 198, MPV 9.3, Neut % (Auto) 68.3, Lymph % (Auto) 21.8, Stewart % (Auto) 9.3, Eos % (Auto) 0.0 L, Baso % (Auto) 0.1, Neut # (Auto) 5.5, Lymph # (Auto) 1.7, Stewart # (Auto) 0.7, Eos # (Auto) 0.0, Baso # (Auto) 0.0, Sodium 138, Potassium 4.0, Chloride 104, Carbon Dioxide 30, Anion Gap 8.0, BUN 19 H, Creatinine 1.00, Estimated Creat Clear 60, Estimated GFR 55 L, Est GFR ( Amer) 66, Glucose 117 H D, Calcium 9.1, Magnesium 2.1, Total Bilirubin 0.3, AST 29, ALT 25, Alkaline Phosphatase 96, Total Protein 7.1, Albumin 4.2, Globulin 2.9, Albumin/Globulin Ratio 1.4 I & O for Labs for Last 24 Hours: Intake & Output 10/26/24 10/27/24 10/28/24 10/29/24 23:59 23:59 23:59 23:59 Intake Total 760 / 760 480 / 480 Output Total 0 / 0 0 / 0 Balance 760 / 760 480 / 480 Weight 162 lb 2 oz 162 lb 2.012 oz Constitutional: Present moderate distress Head: Present normocephalic and atraumatic ENT: Present normal exam, normal oropharynx and mucous membranes moist Neck: Present normal inspection and full ROM Respiratory: Present prolonged expiratory phase, diminished air movement and able to speak in complete sentences; Absent wheezes or crackles Cardiac: Present S1/S2, Tachycardia and radial pulses present GI: Present soft and distention; Absent tenderness or guarding Rectal (female): Present deferred (female): Present deferred Skin: Present intact; Absent cyanosis or jaundice Neuro: Present alert, awake and oriented x 3 Extremities: Present normal inspection; Absent clubbing or cyanosis Psychiatric: Present normal affect and cooperative Meds Home Medications and Allergies Home Medications ?Medication ?Instructions ?Recorded ?Confirmed ?Type alendronate 70 mg tablet 70 mg PO WEEKLY 10/28/24 10/28/24 History atorvastatin 20 mg tablet 20 mg PO HS 10/28/24 10/28/24 History ergocalciferol (vitamin D2) 1,250 1,250 mcg PO WEEKLY 10/28/24 10/28/24 History mcg (50,000 unit) capsule fluticasone fur. 200 mcg-umeclid 1 ea inhalation DAILY 10/28/24 10/28/24 History 62.5 mcg-vilant 25 mcg inhalat.powder (Trelegy Ellipta) loratadine 10 mg tablet 10 mg PO DAILY 10/28/24 10/28/24 History metoprolol succinate 25 mg 25 mg PO DAILY 10/28/24 10/28/24 History tablet,extended release 24 hr pantoprazole 40 mg tablet,delayed 40 mg PO DAILY 10/28/24 10/28/24 History release New Prescriptions to Start Prescriptions: Allergies Allergy/AdvReac Type Severity Reaction Status Date / Time morphine Allergy Redness of Verified 10/28/24 14:23 Skin Results Laboratory Findings 10/29/24 06:12 10/29/24 06:12 Abnormal lab findings: Abnormal Labs 10/28/24 10/28/24 10/29/24 10:45 11:15 06:12 MCH 31.7 H 31.7 H Stewart % (Auto) 11.9 H Eos % (Auto) 0.0 L Carbon Dioxide 32 H BUN 18 H 19 H Estimated GFR 55 L Glucose 117 H D Entero/Rhino (PCR) Detected A Assessment and Plan *Assessment and plan (1) Enteroviral infection: Status: Acute Category: Medical Code(s): B34.1 - Enterovirus infection, unspecified (2) Acute on chronic hypoxic respiratory failure: Status: Acute Category: Medical Code(s): J96.21 - Acute and chronic respiratory failure with hypoxia (3) Acute exacerbation of chronic obstructive airways disease: Status: Acute Category: Medical Code(s): J44.1 - Chronic obstructive pulmonary disease with (acute) exacerbation Plan Ms. Bustos is a 69-year-old female history of COPD tobacco abuse presented with worsening respiratory distress, and pulmonary was called for further evaluation and management. Greater than [id number] smoking history, current smoker smoking half pack a day. Using Trelegy 200 inhaler at baseline. Patient was also given oxygen supplementation during her hospital discharge for pneumonia around June 2024. He is she is not using any oxygen supplementation prior to that. Afebrile. Hemodynamically stable. Tachycardia. No evidence of leukocytosis. Respiratory viral PCR positive for entero and rhinovirus. Chest x-ray upon admission, clear with no dense consolidative/airspace changes appreciated. Currently being managed for pneumonia COPD exacerbation with DuoNebs scheduled, ceftriaxone azithromycin and prednisone On examination moderate respiratory distress. Room air saturations greater than 90%, running 92-94. Appeared tachypneic. No significant wheezing on auscultation. Plan: Trelegy 200 inhaler along with DuoNebs every 6 hours on as-needed basis Prednisone 40 mg daily to complete a total of 5-day course Antibiotics can be weaned to cefdinir to complete a total of 5-day course 6-minute walk testing prior to discharge # Patient also found to be in respiratory stress and tachycardic. Less concern for PE at this point of time given hergradual worsening respiratory symptoms along with other possible alternate etiology. However will closely monitor we will follow the patient in 5 to 7 days in pulmonary clinic.
[2024-10-29 11:17] VITALS: PULSE 102; PULSE 99; O2SAT 90
[2024-10-29] MEDS: CEFTRIAXONE 1 GM 1 GM in 0.9 % SODIUM CHLORIDE 50 ML IV (11:59)
[2024-10-29 13:06] VITALS: BP 126/66; BP 144/74; PULSE 111; PULSE 136; RESP 24; RESP 25; O2SAT 87; O2SAT 91
[2024-10-29] MEDS: FLUTICASONE/UMECLIDIN/VILANTER 200/62.5/25MCG INHALER 1 PUFF IH (13:43)
--- NOTE | 2024-10-30 10:10 | SW/DCPLANNER ---
Spoke with patient on the phone. Patient stated that she is doing well. Patient stated that she is aware of her upcoming appointments. Patient stated that she was able to get her new medicine picked up from clinic pharmacy. Patient denies any concerns or questions at this time. Wale Smith
== END 2024-10-29 15:07 | disposition home or self-care (01) ==
LOC: ER 12:06 → 2ND 12:18
PROVIDERS: Admitting Provider Internal Medicine Adolescent Medicine; Emergency Provider Student in an Organized Health Care Education/Training Program; Visit Provider Internal Medicine Adolescent Medicine
DX: J44.1 Chronic obstructive pulmonary disease with (acute) exacerbation (principal); J96.21 Acute and chronic respiratory failure with hypoxia; E66.811 Obesity, class 1; I10 Essential (primary) hypertension; E78.5 Hyperlipidemia, unspecified; K21.9 Gastro-esophageal reflux disease without esophagitis; F17.210 Nicotine dependence, cigarettes, uncomplicated; B34.1 Enterovirus infection, unspecified; Z88.5 Allergy status to narcotic agent; Z79.899 Other long term (current) drug therapy; Z79.83 Long term (current) use of bisphosphonates; Z79.51 Long term (current) use of inhaled steroids; Z68.31 Body mass index [BMI] 31.0-31.9, adult; Z71.6 Tobacco abuse counseling; Z87.01 Personal history of pneumonia (recurrent); Z56.0 Unemployment, unspecified; Z90.49 Acquired absence of other specified parts of digestive tract; Z90.710 Acquired absence of both cervix and uterus; R94.31 Abnormal electrocardiogram [ECG] [EKG]
CPT/HCPCS: 96374; 96375; 0223U; 36415; 71046; 80053; 83735; 84145; 84484; 85025; 86803; 87389; 87633; 87636; 93005; 94618; 94640; G0378; J0456; J0696; J1650; J1938; J2919; J7050